=== PATIENT | female | born 1950 | race Caucasian/White ===

== ENCOUNTER → 2016-11-22 | Outpatient (CLI) | payer MEDICARE, BC ==
--- NOTE | 2016-11-22 15:11 | KCIC ---
PROCEDURE Complete pelvic ultrasound. HISTORY Right pelvic pain since November 12. TECHNIQUE Real-time ultrasound imaging of the pelvis using transabdominal and transvaginal windows is performed. COMPARISON None. FINDINGS Uterus measures 7.1 x 2.5 x 4.2 cm. No focal myometrial abnormality. Incidentally visualized bladder is unremarkable. Ovaries are not seen. With transvaginal scanning, small nabothian cysts are identified. The endometrial stripe is normal measuring 5 millimeters. The right and left ovary are not identified. No evidence of adnexal mass. No pelvic free fluid is identified. IMPRESSION 1. Ovaries are not identified. 2. The endometrial stripe is normal. 3. No pelvic free fluid. Electronically signed by: Hilton Serrano MD (Nov 22, 2016 15:10:07)
--- NOTE | 2016-11-23 07:54 | KCIC ---
Bilateral digital screening mammograms with CAD: HISTORY Routine screening. COMPARISON Comparison is made to previous studies dated back to 03/26/2014. FINDINGS Breast density category A. The skin and nipples show no abnormalities. No abnormal lymph nodes are seen in the axilla. The breast parenchyma is predominately fatty. There continue to be small parenchymal asymmetries seen bilaterally which have not changed. There are no dominant masses, suspicious calcifications or architectural distortions. IMPRESSION No evidence of malignancy. Recommend routine annual mammographic screening. This study was interpreted with the benefit of Computerized Aided Detection (CAD). Mammography is not 100% sensitive in detecting breast cancer. Therefore, a self breast exam and a clinical breast exam are very important. A negative mammogram does not negate a clinically suspicious finding and should not result in a delay in biopsying a clinically suspicious abnormality. BI-RADS category 2: Benign. This patient's information has been entered into a reminder system for the patient to be notified with the results of this examination and a target date for her next mammograms. Electronically signed by: Laura Winchester MD (Nov 23, 2016 07:52:06)
== END | disposition home or self-care (01) ==
LOC: KCIC US 13:44
PROVIDERS: ATTEND Nurse Practitioner Family
DX: Z12.31 Encounter for screening mammogram for malignant neoplasm of breast (principal); R10.2 Pelvic and perineal pain
CPT/HCPCS: 76830; 76856; G0202; 77067

== ENCOUNTER → 2016-12-07 | Outpatient (CLI) | payer MEDICARE, BC ==
--- NOTE | 2016-12-07 15:21 | KCIC ---
PROCEDURE Sonography of the left scalp of the head HISTORY Palpable mass. FINDINGS High-resolution sonography of the palpable mass of the left scalp as indicated by the patient was performed. No fluid collection or abscess or solid mass or cyst is seen. IMPRESSION Normal study. With regard to the palpable mass, follow up should be clinical. Noncontrast CT study may be helpful for further evaluation if clinically indicated. Electronically signed by: Aren Tirado MD (Dec 07, 2016 15:19:30)
--- NOTE | 2016-12-07 16:42 | KCIC ---
PROCEDURE CT of the abdomen and pelvis without contrast HISTORY Right lower quadrant pain. Pain since November 12. No fever. History of cholecystectomy. COMPARISON None TECHNIQUE Standard noncontrast images obtained. No intravenous or oral contrast as per request. Exposure: One or more of the following individualized dose reduction techniques were utilized for this exam: 1. Automated exposure control. 2. Adjustment of the mA and/or kV according to patient size. 3. Use of iterative reconstruction technique. FINDINGS Lung bases are essentially clear. No evidence of urolithiasis or urinary tract obstruction. Examination of solid viscera, GI tract and vascular structures is compromised by the noncontrast technique. Liver,, spleen, pancreas, adrenals and kidneys are grossly unremarkable. There may be a very small hiatal hernia. No bowel obstruction. Colonic diverticulosis identified without evidence of pericolonic inflammation. The appendix is normal. No evidence of ascites. No significant lymph node enlargement. Unopacified urinary bladder demonstrates no evidence of asymmetric wall thickening. No evidence of pelvic mass. Degenerative spondylosis of the lumbar spine. IMPRESSION No evidence of acute abnormality. Electronically signed by: Rolan Rice MD (Dec 07, 2016 16:40:58)
== END | disposition home or self-care (01) ==
LOC: KCIC US 14:24
PROVIDERS: ATTEND Nurse Practitioner Family
DX: R22.0 Localized swelling, mass and lump, head (principal); R10.31 Right lower quadrant pain
CPT/HCPCS: 74176; 76536

== ENCOUNTER → 2017-08-20 | Outpatient (CLI) | payer MEDICARE, BC ==
--- NOTE | 2017-08-20 11:50 | KCIC ---
Ultrasound of the right medial thigh HISTORY: Right medial thigh lump for one month. FINDINGS: Targeted ultrasound is performed in the area of the palpable lump. No abnormal soft tissue mass or fluid collection is identified. No abnormal vascularity is noted. IMPRESSION: No sonographic abnormality is identified at the area of concern. If further workup is clinically warranted, MRI could be considered. Electronically signed by: Rolan Rice MD (08/20/2017 11:47 AM) [facility]-KCIC2
== END | disposition home or self-care (01) ==
LOC: KCIC US 09:53
PROVIDERS: ATTEND Nurse Practitioner Family
DX: R22.42 Localized swelling, mass and lump, left lower limb (principal)
CPT/HCPCS: 76882

== ENCOUNTER → 2017-08-29 | Outpatient (CLI) | payer MEDICARE, BC ==
--- NOTE | 2017-08-29 15:06 | KCIC ---
HIP RIGHT 2 VIEW, LUMBAR SPINE 2-3V, KNEE RIGHT 3V, RIGHT FEMUR XRAY Clinical Indication: Lumbar pain, right knee pain, right hip pain, right inner thigh pain. No injury. Comparison: None. Findings: Visualized pelvic bones unremarkable. There is minimal right convexity scoliosis of the lower lumbar spine. There is degenerative endplate spurring in the lumbar spine. The vertebral body height and alignment are maintained. Disc space narrowing of L2/L3. No acute compression fracture. No acute fracture or dislocation of the right hip. Mild primary degenerative arthropathy for patient age. Soft tissues unremarkable. No acute fracture of the right femur. No periosteal reaction or bony erosion. Soft tissues unremarkable. There is mild medial compartment narrowing of the knee. Tiny marginal osteophytes of the medial compartment. No acute fracture. The mineralization is normal. There is a large quadriceps patellar enthesophyte. There are tiny patellar osteophytes. Patella in anatomic position. No joint effusion. Soft tissues unremarkable. IMPRESSION: 1. No acute bone abnormality. 2. Degenerative spondylosis of L2/L3. 3. Mild primary degenerative arthropathy of the right hip. 4. Mild primary degenerative arthropathy of the medial compartment of the knee. Electronically signed by: Hilton Serrano MD (08/29/2017 3:03 PM) [id number]
== END | disposition home or self-care (01) ==
LOC: KCIC 13:55
PROVIDERS: ATTEND Nurse Practitioner Family
DX: M12.861 Other specific arthropathies, not elsewhere classified, right knee (principal); M47.896 Other spondylosis, lumbar region; M12.851 Other specific arthropathies, not elsewhere classified, right hip
CPT/HCPCS: 72100; 73502; 73552; 73562

== ENCOUNTER 2019-06-30 21:49 | Inpatient (IN) | payer MEDICARE, BC ==
[~2019-06-30] VITALS: Ht 162.6 cm; Wt 81.2 kg
[2019-06-30 22:23] LABS: BASO # 0.1 x10^3/uL (0.0-0.2); BASO % 1 % (0-3); EOS # 0.2 x10^3/uL (0.0-0.7); EOS % 2 % (0-3); HEMATOCRIT 39.2 % (36.0-47.0); HEMOGLOBIN 13.4 g/dL (12.0-15.5); LYMPH # 3.6 x10^3/uL (1.0-4.8); LYMPH % 39 % (24-48); MEAN CORPUSCULAR HEMOGLOBIN 29 pg (25-35); MEAN CORPUSCULAR HGB CONC 34 g/dL (31-37); MEAN CORPUSCULAR VOLUME 86 fL (79-100); MONO # 0.8 x10^3/uL (0.0-1.1); MONO % 9 % (0-9); NEUT # 4.5 x10^3/uL (1.8-7.7); NEUT % 49 % (31-73); PLATELET COUNT 343 x10^3/uL (140-400); RED BLOOD COUNT 4.56 x10^6/uL (3.50-5.40); RED CELL DISTRIBUTION WIDTH 13.2 % (11.5-14.5); WHITE BLOOD COUNT 9.2 x10^3/uL (4.0-11.0)
--- NOTE | 2019-06-30 22:25 | PHYS DOC ---
Adult General Chief Complaint Chief Complaint: CHEST PAIN HPI HPI Patient is a 68-year-old female who presents with complaint of bilateral chest pain that she states started about a week ago and has progressively been getting worse. She states the pain is also in her mid back. She states that back there pain is like a deep, dull ache but in the front, it is sharp and stabbing in nature. Patient states that the point of greatest intensity is right in the center of her chest and it radiates laterally from there to both sides. She denies any significant cough. She denies any shortness of breath. Patient rates her pain to be a 9 out of 10. She states the pain is worsened when she lies down flat, if she takes in a deep breath and with certain movements. She states that nothing is really improving her pain with the exception of sitting upright.[] Review of Systems Review of Systems Constitutional: Denies fever or chills [] Respiratory: Denies cough or shortness of breath [] Cardiovascular: No additional information not addressed in HPI [] GI: Denies abdominal pain, nausea, vomiting or diarrhea [] Musculoskeletal: Complains of mid back pain [] Integument: Denies rash or skin lesions [] Neurologic: Denies headache, focal weakness or sensory changes [] All other systems were reviewed and found to be within normal limits, except as documented in this note. Current Medications Current Medications Current Medications Medications (Trade) Dose Ordered Sig/Jarrod Start Time Stop Time Status Last Admin Dose Admin Aspirin (Children'S Aspirin) 324 mg 1X ONCE 06/30/19 23:15 06/30/19 23:16 DC 06/30/19 23:53 324 MG Heparin Sodium (Porcine) (Heparin Sodium) 1,950 unit PRN Q6HRS PRN 06/30/19 23:30 Heparin Sodium/ Dextrose 500 ml @ 0 mls/hr CONT PRN PRN 06/30/19 23:30 Info (Anti-Coagulation Monitoring By Pharmacy) 1 each PRN DAILY PRN 06/30/19 23:45 Morphine Sulfate (Morphine Sulfate) 4 mg 1X ONCE 06/30/19 23:45 06/30/19 23:46 DC Ondansetron HCl (Zofran) 4 mg 1X ONCE 06/30/19 23:15 06/30/19 23:16 DC 06/30/19 23:52 4 MG Sodium Chloride 1,000 ml @ 100 mls/hr Q10H 06/30/19 22:30 07/01/19 08:29 Allergies Allergies Allergies Coded Allergies Type Severity Reaction Last Updated Verified No Known Drug Allergies 06/30/19 No Physical Exam Physical Exam Constitutional: Well developed, well nourished, no acute distress, non-toxic appearance. [] HENT: Normocephalic, atraumatic, bilateral external ears normal, oropharynx mo ist, no oral exudates, nose normal. [] Eyes: PERRLA, EOMI, conjunctiva normal, no discharge. [] Neck: Normal range of motion, no tenderness, supple, no stridor. [] Cardiovascular: Regular rate and rhythm[] Lungs & Thorax: Bilateral breath sounds clear to auscultation [] Abdomen: Bowel sounds normal, soft, no tenderness. [] Skin: Warm, dry, no erythema, no rash. [] Back: There is tenderness to palpation around T8-T9 in the bilateral paraspinal musculature. [] Extremities: No tenderness, no cyanosis, no clubbing, ROM intact. [] Neurologic: Alert and oriented X 3, no focal deficits noted. [] Current Patient Data Vital Signs Vital Signs Date Time Temp Pulse Resp B/P (MAP) Pulse Ox O2 Delivery O2 Flow Rate FiO2 06/30/19 23:55 17 97 Room Air 06/30/19 21:55 97.9 95 203/108 (139) 97.9 Lab Values Laboratory Tests Test 06/30/19 22:07 White Blood Count 9.2 x10^3/uL (4.0-11.0) Red Blood Count 4.56 x10^6/uL (3.50-5.40) Hemoglobin 13.4 g/dL (12.0-15.5) Hematocrit 39.2 % (36.0-47.0) Mean Corpuscular Volume 86 fL (79-100) Mean Corpuscular Hemoglobin 29 pg (25-35) Mean Corpuscular Hemoglobin Concent 34 g/dL (31-37) Red Cell Distribution Width 13.2 % (11.5-14.5) Platelet Count 343 x10^3/uL (140-400) Neutrophils (%) (Auto) 49 % (31-73) Lymphocytes (%) (Auto) 39 % (24-48) Monocytes (%) (Auto) 9 % (0-9) Eosinophils (%) (Auto) 2 % (0-3) Basophils (%) (Auto) 1 % (0-3) Neutrophils # (Auto) 4.5 x10^3/uL (1.8-7.7) Lymphocytes # (Auto) 3.6 x10^3/uL (1.0-4.8) Monocytes # (Auto) 0.8 x10^3/uL (0.0-1.1) Eosinophils # (Auto) 0.2 x10^3/uL (0.0-0.7) Basophils # (Auto) 0.1 x10^3/uL (0.0-0.2) D-Dimer (Bailey) < 0.27 ug/mlFEU Sodium Level 142 mmol/L (136-145) Potassium Level 3.5 mmol/L (3.5-5.1) Chloride Level 104 mmol/L (98-107) Carbon Dioxide Level 26 mmol/L (21-32) Anion Gap 12 (6-14) Blood Urea Nitrogen 13 mg/dL (7-20) Creatinine 0.9 mg/dL (0.6-1.0) Estimated GFR (Cockcroft-Gault) 61.9 BUN/Creatinine Ratio 14 (6-20) Glucose Level 105 mg/dL (70-99) H Calcium Level 9.2 mg/dL (8.5-10.1) Magnesium Level 2.1 mg/dL (1.8-2.4) Total Bilirubin 0.3 mg/dL (0.2-1.0) Aspartate Amino Transferase (AST) 30 U/L (15-37) Alanine Aminotransferase (ALT) 38 U/L (14-59) Alkaline Phosphatase 49 U/L (46-116) Troponin I Quantitative 0.741 ng/mL (0.000-0.055) ZB-Rmi-W-Type Natriuretic Peptide 552 pg/mL (0-124) H Total Protein 8.1 g/dL (6.4-8.2) Albumin 3.7 g/dL (3.4-5.0) Albumin/Globulin Ratio 0.8 (1.0-1.7) L Lipase 135 U/L (73-393) Laboratory Tests 06/30/19 22:07 Laboratory Tests 06/30/19 22:07 EKG EKG [] Interpretation Time: EKG demonstrates normal sinus rhythm with rate of 88. Radiology/Procedures Radiology/Procedures [] Course & Med Decision Making Course & Med Decision Making Pertinent Labs and Imaging studies reviewed. (See chart for details) [] Dragon Disclaimer Dragon Disclaimer This electronic medical record was generated, in whole or in part, using a voice recognition dictation system. Departure Departure Impression: Primary Impression: NSTEMI (non-ST elevated myocardial infarction) Disposition: ADMITTED INPATIENT Admitting Physician: HAIR (Dr. Grady) Condition: IMPROVED Referrals: MELYSSA GUPTA APRN (PCP) CHRISTIN ARANGO Jr., DO Jun 30, 2019 22:25
[2019-06-30] MEDS ORDERED: MORPHINE SULFATE 2 MG/ML VIAL. IV ONE (22:30)
[2019-06-30] MEDS ORDERED: IV NORMAL SALINE 1000ML BAG 1,000 ML IV SCH (22:30)
[2019-06-30 22:45] LABS: CALCIUM 9.2 mg/dL (8.5-10.1); CREATININE 0.9 mg/dL (0.6-1.0); GFR 61.9; POTASSIUM 3.5 mmol/L (3.5-5.1)
[2019-06-30 22:51] LABS: ALBUMIN 3.7 g/dL (3.4-5.0); ALBUMIN/GLOBULIN RATIO 0.8 (1.0-1.7); MAGNESIUM 2.1 mg/dL (1.8-2.4); TOTAL BILIRUBIN 0.3 mg/dL (0.2-1.0); TOTAL PROTEIN 8.1 g/dL (6.4-8.2)
[2019-06-30] MEDS ORDERED: ONDANSETRON PF 4 MG/2 ML VIAL. IV ONE (23:15)
[2019-06-30] MEDS ORDERED: ASPIRIN CHEWABLE 81 MG TABLET. PO ONE (23:15)
--- NOTE | 2019-06-30 23:22 | RAD ---
AP chest x-ray HISTORY: Chest pain. FINDINGS: Tortuosity/ectasia aortic arch. Heart size normal. No pneumothorax, pulmonary opacities or pleural effusions. Mild elevation of the right diaphragm similar to the CT abdomen from 2017. Bones are unremarkable. IMPRESSION: No acute process. Electronically signed by: Wai Grijalva MD (06/30/2019 11:19 PM) [facility]
[2019-06-30] MEDS ORDERED: HEPARIN for IV BOLUS 10,000 UNIT/10 ML VIAL. IV PRN (23:30)
[2019-06-30] MEDS ORDERED: HEPARIN 25,000UTS/500ML PREMIX 500 ML IV PRN (23:30)
[2019-06-30] MEDS ORDERED: MORPHINE SULFATE 4 MG/ML VIAL. IV ONE (23:45)
[2019-07-01] VITALS (30 sets, daily range): BP systolic 133–185; BP diastolic 76–113
[2019-07-01] MEDS ORDERED: HEPARIN for IV BOLUS 10,000 UNIT/10 ML VIAL. IV ONE
[2019-07-01] MEDS ORDERED: ONDANSETRON PF 4 MG/2 ML VIAL. IV PRN
--- NOTE | 2019-07-01 01:45 | NUR ---
Patient admitted to room 114 at 0120 via cart from ED, accompanied by ED RN; patient with Heparin infusing per cardiac protocol with UFH due at 0600. Patient A/Ox4, friendly and cooperative and complaining of midsternal chest pain rating 3/10 with radiation around bilat breast to back and straight through to the back without associated symptoms. Patient reports pain is better since administration of Fentanyl in ED. Patient oriented to ICU routine, room, nursing call light, TV/bed control, Numeric pain scale, diet (NPO), activity (up with assist) and POC. Discussed need for NPO status for further testing this am and plan to call Dr Fajardo to notify of consult and update on chest discomfort. Patient verbalized understanding of above and is agreeable. See Admission information and Admission assessment.
[2019-07-01] MEDS ORDERED: HEPARIN for IV BOLUS 10,000 UNIT/10 ML VIAL. IV PRN (01:50)
[2019-07-01] MEDS: ANTI-COAG MONITOR BY PHARMACY. MC PRN ×2 (01:51→16:03)
[2019-07-01] MEDS: IV NORMAL SALINE 1000ML BAG 1,000 ML IV SCH ×2 (02:01→11:16)
--- NOTE | 2019-07-01 02:20 | NUR ---
Paged Dr Fajardo, returned page, notified of consult for NSTEMI patient active chest pain which radiated around bilat breast to back and straight through to the back initially rating 3/10 now increased to 5/10 on Numeric pain scale without associated symptoms. Also notified of SBP 180's and DBP 110's. Orders received to start Nitro gtt per protocol for chest pain and decrease SBP to 140's; see orders. Patient notified.
[2019-07-01] MEDS ORDERED: NITROGLYCERIN PREMIX 250 ML IV PRN (02:30)
[2019-07-01] MEDS ORDERED: MORPHINE SULFATE 2 MG/ML VIAL. IV PRN (02:30)
[2019-07-01] MEDS: MORPHINE SULFATE 4 MG/ML VIAL. IV PRN ×3 (04:57→11:12)
--- NOTE | 2019-07-01 05:47 | EKG ---
[facility] [address] [place] [address] Test Date: 2019-06-30 Test Time: 21:56:55 Pat Name: BROOKE GUZMAN Department: Room: 114 1 Gender: F Boiler Mechanic: : 1950 Requested By: CHRISTIN ARANGO Order Number: [id number] Reading MD: Michael Singleton MD Measurements Intervals [place] Rate: 88 P: 53 KS: 150 QRS: 34 QRSD: 82 T: 33 QT: 386 QTc: 471 Interpretive Statements SINUS RHYTHM Electronically Signed On 07-07-2019 9:44:02 CDT by Michael Singleton MD
[2019-07-01 06:05] LABS: HEMATOCRIT 36.1 % (36.0-47.0); HEMOGLOBIN 12.4 g/dL (12.0-15.5); RED BLOOD COUNT 4.21 x10^6/uL (3.50-5.40); WHITE BLOOD COUNT 8.7 x10^3/uL (4.0-11.0)
[2019-07-01 06:33] LABS: CALCIUM 8.7 mg/dL (8.5-10.1); CREATININE 0.8 mg/dL (0.6-1.0); GFR 70.9; MAGNESIUM 2.1 mg/dL (1.8-2.4)
--- NOTE | 2019-07-01 06:50 | NUR ---
UFH 0.41, per Heparin protocol no change in dose and repeat UFH in 6HRS. Heparin gtt continues at 12UNITS/KG/HR (19.7/HR) and UFH ordered for 1200.
[2019-07-01] MEDS ORDERED: ESTR0.62 PO (07:26)
[2019-07-01] MEDS ORDERED: ESOM40CA PO (07:26)
[2019-07-01] MEDS ORDERED: RANI-376 PO (07:26)
[2019-07-01] MEDS: ONDANSETRON PF 4 MG/2 ML VIAL. IV PRN ×2 (07:46→17:33)
[2019-07-01] MEDS: FAMOTIDINE 20 MG TABLET. PO SCH ×2 (08:57→20:47)
[2019-07-01] MEDS ORDERED: AMLO2.5T5 PO (09:32)
--- NOTE | 2019-07-01 09:59 | HP ---
ADMIT DATE: 07/01/2019 CHIEF COMPLAINT: Chest pain. HISTORY OF PRESENT ILLNESS: The patient is a pleasant 68-year-old female who presented with chest pain. It is bilateral, started about a week ago, and has progressively gotten worse. She took some xikx-[id number] meds, but that did not seem to help. It is radiating to the back, rated at 7/10. When she got to our Emergency Room, we checked some labs and sure enough her troponin is slightly high at 0.7. We admitted her to the ICU overnight. Now, her troponin is up to 1.8. I suspect she has had a small acute myocardial infarction. The patient is being examined in the ICU. We have consulted Cardiology. PAST MEDICAL HISTORY: Hypertension and GERD. ALLERGIES: None. FAMILY HISTORY: Coronary artery disease. SOCIAL HISTORY: She does not drink, smoke, or take drugs. MEDICATIONS: Reviewed. Please refer to the MRAD. REVIEW OF SYSTEMS: GENERAL: No history of weight change, weakness or fevers. SKIN: No bruising, hair changes or rashes. EYES: No blurred, double or loss of vision. NOSE AND THROAT: No history of nosebleeds, hoarseness or sore throat. HEART: She complains of chest pain. LUNGS: Denies cough, hemoptysis, wheezing or shortness of breath. GASTROINTESTINAL: Denies changes in appetite, nausea, vomiting, diarrhea or constipation. GENITOURINARY: No history of frequency, urgency, hesitancy or nocturia. NEUROLOGIC: Denies history of numbness, tingling, tremor or weakness. PSYCHIATRIC: No history of panic, anxiety or depression. ENDOCRINE: No history of heat or cold intolerance, polyuria or polydipsia. EXTREMITIES: Denies muscle weakness, joint pain, pain on walking or stiffness. PHYSICAL EXAMINATION: VITALS: Within normal limits and are stable. GENERAL: No apparent distress. Alert and oriented. HEENT: Head is normocephalic, atraumatic, pupils were equally round and reactive to light and accommodation. NECK: Supple, no JVD, no thyromegaly was noted. LUNGS: Clear to auscultation in all lung c[place] without rhonchi or wheezing. HEART: RRR, S1, S2 present. Peripheral pulses intact, no obvious murmurs were noted. ABDOMEN: Soft, nontender. Positive bowel sounds no organomegaly, normal bowel sounds. EXTREMITIES: Without any cyanosis, clubbing, or edema. Pedal pulses intact, Homans sign is negative. NEUROLOGIC: Normal speech, normal tone. A & O x3, moves all extremities, no obvious focal deficits. PSYCHIATRIC: Normal affect, normal mood. Stable. SKIN: No ulcerations or rashes, good skin turgor, no jaundice. VASCULAR: Good capillary refill, neurovascular bundle appears to be intact. LABORATORY DATA: Troponin is 1.8. ASSESSMENT AND PLAN: Acute myocardial infarction. The patient has been admitted. We are checking serial enzymes and serial EKGs. We have consulted Cardiology. We have her on a heparin drip and nitro drip. Home meds. Deep venous thrombosis prophylaxis. Full code. Await further Cardiology input. PROGNOSIS: Guarded. YOLIS BERRY DO DR: JUANITO/bereket JOB#: [id number] / [id number]
--- NOTE | 2019-07-01 10:32 | PDOC2 ---
BARRERA CONNOLLY ART PREPARATOR 07/01/19 1032: CARDIAC CONSULT DATE OF CONSULT Date of Consult DATE: 07/01/19 TIME: 10:31 REASON FOR CONSULT Reason for Consult: NSTEMI REFERRING PHYSICIAN Referring Physician: Dr. Herrera SOURCE Source: Chart review, Patient HISTORY OF PRESENT ILLNESS HISTORY OF PRESENT ILLNESS This is a 68 yo female who presented secondary to chest pain. Patient reports intermittent central chest pressure for the last week. No SOA, palpitations. Mild nausea. No specific worsening or relieving factors. Due to persistent, progressively worsening pain, misty came to the ED for further evaluation and treatment. Slightly dizzy this morning. PAST MEDICAL HISTORY Cardiovascular: HTN GI: GERD Musculoskeletal: Osteoarthritis PAST SURGICAL HISTORY Past Surgical History: Cholecystectomy, Tubal Ligation, Tonsillectomy FAMILY HISTORY Family History: Coronary Artery Disease SOCIAL HISTORY Smoke: No ALCOHOL: none Drugs: None Lives: with Family CURRENT MEDICATIONS CURRENT MEDICATIONS Current Medications Medications (Trade) Dose Ordered Sig/Jarrod Route PRN Reason Start Time Stop Time Status Last Admin Dose Admin Morphine Sulfate (Morphine Sulfate) 2 mg 1X ONCE IV 06/30/19 22:30 06/30/19 22:31 DC 06/30/19 23:55 Sodium Chloride 1,000 ml @ 100 mls/hr Q10H IV 06/30/19 22:30 07/01/19 08:29 DC 07/01/19 00:13 Ondansetron HCl (Zofran) 4 mg 1X ONCE IV 06/30/19 23:15 06/30/19 23:16 DC 06/30/19 23:52 Aspirin (Children'S Aspirin) 324 mg 1X ONCE PO 06/30/19 23:15 06/30/19 23:16 DC 06/30/19 23:53 Heparin Sodium (Porcine) (Heparin Sodium) 4,000 unit 1X ONCE IV 07/01/19 00:00 07/01/19 00:01 DC 07/01/19 00:12 Heparin Sodium/ Dextrose 500 ml @ 0 mls/hr CONT PRN PRN IV ANTICOAGULATION 06/30/19 23:30 07/01/19 00:18 Info (Anti-Coagulation Monitoring By Pharmacy) 1 each PRN DAILY PRN MC SEE COMMENTS 06/30/19 23:45 07/01/19 01:51 Ondansetron HCl (Zofran) 4 mg PRN Q8HRS PRN IV NAUSEA/VOMITING 1st choice 07/01/19 00:00 07/01/19 07:44 DC 07/01/19 04:11 Morphine Sulfate (Morphine Sulfate) 4 mg PRN Q2HR PRN IV SEVERE PAIN 7-10 07/01/19 00:00 07/01/19 23:59 07/01/19 08:45 Sodium Chloride 1,000 ml @ 100 mls/hr Q10H IV 07/01/19 00:00 07/01/19 23:59 07/01/19 02:01 Nitroglycerin/ Dextrose 250 ml @ 1.5 mls/hr CONT PRN IV SEE I/O RECORD 07/01/19 02:30 07/01/19 02:40 Morphine Sulfate (Morphine Sulfate) 2 mg PRN Q2HR PRN IV SEVERE PAIN 7-07/01/19 02:30 07/01/19 03:27 Ondansetron HCl (Zofran) 4 mg PRN Q4HRS PRN IV NAUSEA/VOMITING 1st choice 07/01/19 07:45 07/02/19 07:44 07/01/19 07:46 Famotidine (Pepcid) 20 mg BID PO 07/01/19 09:00 07/01/19 08:57 ALLERGIES ALLERGIES: Coded Allergies: No Known Drug Allergies (Unverified , 06/30/19) ROS Review of System 14 point ROS conducted with pertinent positives noted above in HPI PHYSICAL EXAM General: Alert, Oriented X3, Cooperative, No acute distress HEENT: Atraumatic, Mucous membr. moist/pink Lungs: Clear to auscultation, Normal air movement Heart: Regular rate, Normal S1, Normal S2, No murmurs Abdomen: Soft, No tenderness Extremities: No cyanosis, No edema, Normal pulses Skin: No significant lesion Neuro: Normal speech, Sensation intact Psych/Mental Status: Mental status NL, Mood NL MUSCULOSKELETAL: Osteoarthritic changes both hands VITALS/I&O VITALS/I&O: Vital Signs Date Time Temp Pulse Resp B/P (MAP) Pulse Ox O2 Delivery O2 Flow Rate FiO2 07/01/19 09:00 91 17 157/87 (110) 93 Room Air 07/01/19 07:00 98.4 98.4 I & O 06/30/19 06/30/19 07/01/19 15:00 23:00 07:00 Intake Total 709 ml Balance 709 ml LABS Lab: Laboratory Tests Test 06/30/19 22:07 07/01/19 05:45 White Blood Count 9.2 x10^3/uL (4.0-11.0) 8.7 x10^3/uL (4.0-11.0) Red Blood Count 4.56 x10^6/uL (3.50-5.40) 4.21 x10^6/uL (3.50-5.40) Hemoglobin 13.4 g/dL (12.0-15.5) 12.4 g/dL (12.0-15.5) Hematocrit 39.2 % (36.0-47.0) 36.1 % (36.0-47.0) Mean Corpuscular Volume 86 fL (79-100) 86 fL (79-100) Mean Corpuscular Hemoglobin 29 pg (25-35) 29 pg (25-35) Mean Corpuscular Hemoglobin Concent 34 g/dL (31-37) 34 g/dL (31-37) Red Cell Distribution Width 13.2 % (11.5-14.5) 13.0 % (11.5-14.5) Platelet Count 343 x10^3/uL (140-400) 316 x10^3/uL (140-400) Neutrophils (%) (Auto) 49 % (31-73) Lymphocytes (%) (Auto) 39 % (24-48) Monocytes (%) (Auto) 9 % (0-9) Eosinophils (%) (Auto) 2 % (0-3) Basophils (%) (Auto) 1 % (0-3) Neutrophils # (Auto) 4.5 x10^3/uL (1.8-7.7) Lymphocytes # (Auto) 3.6 x10^3/uL (1.0-4.8) Monocytes # (Auto) 0.8 x10^3/uL (0.0-1.1) Eosinophils # (Auto) 0.2 x10^3/uL (0.0-0.7) Basophils # (Auto) 0.1 x10^3/uL (0.0-0.2) D-Dimer (Bailey) < 0.27 ug/mlFEU Sodium Level 142 mmol/L (136-145) 143 mmol/L (136-145) Potassium Level 3.5 mmol/L (3.5-5.1) 4.0 mmol/L (3.5-5.1) Chloride Level 104 mmol/L (98-107) 107 mmol/L (98-107) Carbon Dioxide Level 26 mmol/L (21-32) 24 mmol/L (21-32) Anion Gap 12 (6-14) 12 (6-14) Blood Urea Nitrogen 13 mg/dL (7-20) 12 mg/dL (7-20) Creatinine 0.9 mg/dL (0.6-1.0) 0.8 mg/dL (0.6-1.0) Estimated GFR (Cockcroft-Gault) 61.9 70.9 BUN/Creatinine Ratio 14 (6-20) Glucose Level 105 mg/dL (70-99) H 119 mg/dL (70-99) H Calcium Level 9.2 mg/dL (8.5-10.1) 8.7 mg/dL (8.5-10.1) Magnesium Level 2.1 mg/dL (1.8-2.4) 2.1 mg/dL (1.8-2.4) Total Bilirubin 0.3 mg/dL (0.2-1.0) Aspartate Amino Transferase (AST) 30 U/L (15-37) Alanine Aminotransferase (ALT) 38 U/L (14-59) Alkaline Phosphatase 49 U/L (46-116) Troponin I Quantitative 0.741 ng/mL (0.000-0.055) 1.827 ng/mL (0.000-0.055) HH-Eci-R-Type Natriuretic Peptide 552 pg/mL (0-124) H Total Protein 8.1 g/dL (6.4-8.2) Albumin 3.7 g/dL (3.4-5.0) Albumin/Globulin Ratio 0.8 (1.0-1.7) L Lipase 135 U/L (73-393) Heparin Anti-Xa Act, Unfractionated 0.41 IU/mL (0.30-0.70) Laboratory Tests 06/30/19 22:07 07/01/19 05:45 Laboratory Tests 06/30/19 22:07 07/01/19 05:45 ASSESSMENT/PLAN ASSESSMENT/PLAN Chest pain, unstable angina NSTEMI; trop highest 1.8. On heparin and nitro gtt Hypertension Recommendations Continue heparin and nitro gtt ASA Echo to assess LV systolic function Lipid panel Given symptomatology in the setting of NSTMEI, recommend cardiac cath with possible PCI. R/b/a discussed with patient and and they are agreeable to proceed. JOVITA WELLS MD 07/01/19 1140: CARDIAC CONSULT ASSESSMENT/PLAN ASSESSMENT/PLAN Patient seen and examined. Agree with [employer] MAT ASSEMBLER's assessment and plan. Patient with acute non-STEMI. She is presently chest pain-free. Continue heparin infusion per protocol. Plan for cardiac catheterization and possible angioplasty. Risks and benefits were explained and she is agreeable. BARRERA CONNOLLY APRN Jul 01, 2019 10:32 JOVITA WELLS MD Jul 01, 2019 11:40
--- NOTE | 2019-07-01 10:37 | NUR ---
SS following for discharge planning. SS reviewed pt chart. Pt is from home with spouse and is currently on room air. SS will continue to follow for discharge planning.
[2019-07-01] MEDS ORDERED: PROCHLORPERAZINE 10 MG/2 ML VIAL. IV PRN ×2 (10:45)
[2019-07-01] MEDS ORDERED: IOHEXOL 300 MG/ML 100ML VIAL. ONE (13:06)
[2019-07-01] MEDS ORDERED: LIDOCAINE 1% PF 2 ML VIAL. ONE (13:06)
[2019-07-01] MEDS ORDERED: VERAPAMIL 5 MG/2 ML VIAL. ONE (14:09)
[2019-07-01] MEDS ORDERED: MIDAZOLAM HCL/PF 2 MG/2 ML VIAL. ONE (14:09)
[2019-07-01] MEDS ORDERED: fentaNYL PF VIAL 100 MCG/2 ML VIAL ONE (14:09)
[2019-07-01] MEDS ORDERED: NITROGLYCERIN 200 MCG/2 ML SYRINGE FOR CATH/VASC LAB. ONE (14:09)
[2019-07-01] MEDS ORDERED: HEPARIN for IV BOLUS 10,000 UNIT/10 ML VIAL. ONE (14:09)
[2019-07-01] MEDS ORDERED: BIVALIRUDIN 250 MG VIAL. IV ONE ×2 (14:51→15:00)
[2019-07-01] MEDS ORDERED: LIDOCAINE 1% PF 2 ML VIAL. INJ ONE (15:00)
[2019-07-01] MEDS ORDERED: VERAPAMIL 5 MG/2 ML VIAL. IART ONE (15:00)
[2019-07-01] MEDS ORDERED: NITROGLYCERIN 200 MCG/2 ML SYRINGE FOR CATH/VASC LAB. IART ONE (15:00)
[2019-07-01] MEDS ORDERED: IOHEXOL 300 MG/ML 100ML VIAL. IART ONE (15:00)
[2019-07-01] MEDS ORDERED: HEPARIN for IV BOLUS 10,000 UNIT/10 ML VIAL. IART ONE (15:00)
[2019-07-01] MEDS ORDERED: MIDAZOLAM HCL/PF 2 MG/2 ML VIAL. IV ONE (15:00)
[2019-07-01] MEDS ORDERED: fentaNYL PF VIAL 100 MCG/2 ML VIAL IV ONE (15:00)
[2019-07-01] MEDS ORDERED: CONTRAST GIVEN. MC PRN (15:15)
[2019-07-01] MEDS ORDERED: TICAGRELOR 90 MG TABLET. ONE (15:21)
[2019-07-01] MEDS ORDERED: TICAGRELOR 90 MG TABLET. PO ONE (15:30)
[2019-07-01] MEDS ORDERED: IV 1/2 NORMAL SALINE 1,000 ML IV SCH (15:51)
--- NOTE | 2019-07-01 15:51 | PDOC ---
MODERATE SEDATION ASSESSMENT RISKS/ALTERNATIVES Risks/Alternatives Risks and alternatives of this type of sedation and procedure discussed with: RISK/ALTERNATIVES: Patient H & P ON CHART H & P H & P on chart and reviewed for co-morbid conditions and appropriate labs. H&P ON CHART: Yes STATUS PREG STATUS ASSESSED: N/A MEDS/ALLERGIES REVIEWED Meds/Allergies Reviewed Medications and Allergies including time and route of recently administered narcotics and sedatives. MEDS/ALLERGIES REVIEWED: Yes ASA RATING ASA RATING: III AIRWAY ASSESSMENT Airway Assessment Airway patency, oral function limitations, presence of caps, crowns, dentures, partials, and ability to extend neck assessed. AIRWAY ASSESSMENT: Yes MALLAMPATI SCORE MALLAMPATI SCORE: II PRE-SEDATION ASSESSMENT PRE-SEDATION ASSESSMENT: Yes JOVITA WELLS MD Jul 01, 2019 15:51
[2019-07-01] MEDS ORDERED: ACETAMINOPHEN 325 MG TABLET. PO PRN (16:00)
[2019-07-01] MEDS ORDERED: NITROGLYCERIN SUBLINGUAL 0.4 MG BOTTLE OF 25. SL PRN (16:00)
[2019-07-01] MEDS ORDERED: fentaNYL PF VIAL 100 MCG/2 ML VIAL IV PRN (16:00)
[2019-07-01] MEDS ORDERED: OLANZapine IM 10 MG VIAL. IM PRN (16:45)
[2019-07-01] MEDS: METOPROLOL TART IMMED RELEASE 25 MG TABLET. PO SCH (20:48)
[2019-07-01] MEDS ORDERED: ESTROGENS, CONJUGATED 0.625 MG TABLET PO SCH (21:00)
[2019-07-01] MEDS ORDERED: PANTOPRAZOLE 40 MG TABLET.DR. PO SCH (21:00)
[2019-07-01] MEDS ORDERED: METOPROLOL TART IMMED RELEASE 25 MG TABLET. PO SCH (21:00)
[2019-07-01] MEDS ORDERED: ATORVASTATIN CALCIUM 20 MG TABLET PO SCH (21:00)
[2019-07-02] VITALS (11 sets, daily range): BP systolic 141–179; BP diastolic 79–96
[2019-07-02] MEDS ORDERED: ASPIRIN ENTERIC COATED 81 MG TABLET.DR. PO SCH ×2 (08:00)
--- NOTE | 2019-07-02 08:30 | CARD ---
MR#: [id number] Date of Study: 07/01/2019 Ordering Physician: BARRERA CONNOLLY, Referring Physician: BARRERA CONNOLLY, Tech: Ary Gifford APPROVED REPORT EXAM: Two-dimensional and M-mode echocardiogram with Doppler and color Doppler. Other Information Quality : AverageHR: 100bpm INDICATION Chest Pain 2D DIMENSIONS Left Atrium(2D)3.1 (1.6-4.0cm)IVSd1.3 (0.7-1.1cm) Aortic Root(2D)2.9 (2.0-3.7cm)LVDd4.1 (3.9-5.9cm) LVOT Diameter2.0 (1.8-2.4cm)PWd1.2 (0.7-1.1cm) LVDs3.2 (2.5-4.0cm)FS (%) 22.4 % SV33.7 mlLVEF(%)45.6 (>50%) Aortic Valve AoV Peak Onesimo.141.6cm/sAoV VTI25.7cm AO Peak GR.8.0mmHgLVOT VTI 20.38cm AO Mean GR.5mmHg Mitral Valve MV E Xnpcbhqj065.1cm/sMV DECEL BULB070np MV A Xqtdkskc157.4cm/sE/A Ratio0.8 TDI Lateral E' P. V7.27cm/sMedial E' P. V5.92cm/s E/Lateral E'15.0E/Medial E'18.4 Tricuspid Valve TR P. Ptbowsfy074pb/sRAP KJXBXWTN3ezVa TR Peak Gr.46jcVvOQPL59sjAr LEFT VENTRICLE The left ventricle is normal size. There is mild to moderate concentric left ventricular hypertrophy. Mid to distal anteroseptal wall hypokinesis. The Ejection Fraction is 40-45%. Transmitral Doppler fl ow pattern is Grade I-abnormal relaxation pattern. RIGHT VENTRICLE The right ventricle is normal size. There is normal right ventricular wall thickness. The right ventr icular systolic function is normal. ATRIA The left atrium size is normal. The right atrium size is normal. The interatrial septum is intact wit h no evidence for an atrial septal defect or patent foramen ovale as noted on 2-D or Doppler imaging. AORTIC VALVE The aortic valve is not well visualized. Doppler and Color Flow revealed no significant aortic regurg itation. There is no significant aortic valvular stenosis. MITRAL VALVE The mitral valve is normal in structure and function. There is no evidence of mitral valve prolapse. There is no mitral valve stenosis. Doppler and Color-flow revealed trace mitral regurgitation. TRICUSPID VALVE The tricuspid valve is not well visualized. Doppler and Color Flow revealed trace tricuspid regurgita tion with an estimated PAP of 34 mmHg. There is no tricuspid valve stenosis. PULMONIC VALVE The pulmonic valve is not well visualized. Doppler and Color Flow revealed no pulmonic valvular regur gitation. GREAT VESSELS The aortic root is normal in size. The IVC is normal in size and collapses >50% with inspiration. PERICARDIAL EFFUSION There is no evidence of significant pericardial effusion. Critical Notification Critical Value: No <Conclusion> Mid to distal anteroseptal wall hypokinesis. The Ejection Fraction is 40-45%. Transmitral Doppler flow pattern is Grade I-abnormal relaxation pattern. Trace mitral regurgitation. Trace tricuspid regurgitation with an estimated PAP of 34 mmHg. There is no evidence of significant pericardial effusion. Signed by : Santy Hernandez, Electronically Approved : 07/02/2019 08:29:40
--- NOTE | 2019-07-02 08:52 | CARD ---
MR#: [id number] Date of Study: 07/01/2019 Ordering Physician: JOVITA HERNANDEZ, Referring Physician: JOVITA HERNANDEZ Tech: RT Laurie (R) APPROVED REPORT Technologist: RT Laurie (R) Nurse: Makenna Roca R.N. Procedure(s) performed: 1. Left heart catheterization and selective coronary angiography via right t ransradial approach 2. Successful complex PCI/drug eluting stent placement to left anterior descending artery Fluoro time: 17min Dose: 29Pajd5 Contrast:195cc Moderate sedation: 61 mins INDICATION The indication(s) include : non-STEMI . CS Clinical Frailty Scale CS Clinical Frailty Scale: Mildly Frail Heart Failure Heart Failure: No PROCEDURE NARRATIVE After explaining the risks, benefits and alternative options, informed consent was obtained from merritt ent. Patient was brought to the cardiac Train Brake Operator and right wrist was prepped and draped in the usual fashion after confirming a positive modified Amarjit's test. Arterial access was obtained in the righ t radial artery and a 6 Guinean sheath was inserted. 6 Guinean JL 3.5 and 6 Guinean Lonny catheters we re used to perform selective angiography of the left and right coronary arteries. LVEDP and transaort ic gradients were measured. Left ventriculography was not performed due to elevated LVEDP. The follo wing findings were noted. FINDINGS 1. Hemodynamics: Elevated left ventricle end-diastolic pressure of 32 mmHg consistent with acute lew stolic heart failure. No pullback gradient across the aortic valve. 2. Coronary angiography: a. The left main coronary artery arose from the left sinus of Valsalva, gave rise to the left anteri or descending and left circumflex arteries and did not show any significant stenosis. b. The left anterior descending artery showed critical 90-95% stenosis involving the ostial and prox imal segments. c. The left circumflex artery did not show any significant stenosis. d. The right coronary artery was a large and dominant vessel arising from the right sinus of Valsalv a that did not show any significant stenosis. INTERVENTION The left main coronary artery was engaged with a 6 Guinean XB 3.5 guide catheter. The stenosis in the ostial and proximal segment of the left anterior descending artery was crossed with a 0.014 inch [employer] i Pro water guidewire. This was predilated with a 2.5 x 15 mm trek balloon. Subsequently, this was tr eated with a 3.0 x 18 mm Rivera Xience Katerin drug-eluting stent. This was postdilated with a 3.25 x 8 mm noncompliant NC trek balloon. Follow-up angiography showed resolution of the stenosis with ANAID- 3 distal flow. Patient tolerated the procedure well. Hemostasis was achieved using TR band. There wer e no immediate complications. ANAID Flow ANAID Flow (Pre-Intervention): ANAID-2 ANAID Flow (Post-Intervention): ANAID-3 Conclusion 1. Severe single-vessel coronary artery disease involving left anterior descending artery 2. Successful PCI/JANIS to LAD Recommendations 1. Aspirin 81 mg daily 2. Ticagrelor 90 mg BID for preferably one year 3. Cardiovascular risk factor modification 4. Check 2-D echo to assess LV systolic function Signed by : Jovita Hernandez, Electronically Approved : 07/02/2019 08:51:33
[2019-07-02] MEDS ORDERED: LISINOPRIL 5 MG TABLET. PO SCH (09:00)
[2019-07-02] MEDS ORDERED: TICAGRELOR 90 MG TABLET. PO SCH (09:00)
[2019-07-02] MEDS: FAMOTIDINE 20 MG TABLET. PO SCH (09:04)
[2019-07-02] MEDS: METOPROLOL TART IMMED RELEASE 25 MG TABLET. PO SCH (09:05)
[2019-07-02] MEDS ORDERED: LOPE2TAB27 PO (09:30)
[2019-07-02] MEDS ORDERED: MOME45CR3 TP (09:52)
[2019-07-02] MEDS ORDERED: ALBU2.5V8 INH ×2 (09:52→15:00)
[2019-07-02] MEDS ORDERED: SUCR1TAB35 PO (09:52)
[2019-07-02] MEDS ORDERED: PSEU30CA PO (09:52)
[2019-07-02] MEDS ORDERED: FEXO180T81 PO (10:06)
[2019-07-02] MEDS ORDERED: MULT1TAB52 PO ×2 (10:08→15:03)
[2019-07-02] MEDS ORDERED: LOPERAMIDE 2 MG CAPSULE PO SCH (11:00)
--- NOTE | 2019-07-02 12:20 | PDOC ---
[facility] PROGRESS NOTE Chief Complaint Chief Complaint Chest pain, elevated troponin. History of Present Illness History of Present Illness Patient is a 68 year old white female admitted for chest pain and elevated troponin. Patient was seen and examined in the ICU, she had a stent placed in the Left anterior descending artery yesterday. She states that she has felt tremendous improvement since the procedure. Vitals/I&O Vitals/I&O: Vital Signs Date Time Temp Pulse Resp B/P (MAP) Pulse Ox O2 Delivery O2 Flow Rate FiO2 07/02/19 09:05 162/81 07/02/19 06:00 80 48 97 Room Air 07/02/19 04:00 98.6 98.6 07/01/19 15:36 2.0 I & O 07/01/19 07/01/19 07/02/19 14:59 22:59 06:59 Intake Total 1451 ml 1000 ml Balance 1451 ml 1000 ml Physical Exam General: Alert, Oriented X3, Cooperative, No acute distress Heart: Regular rate, Normal S1, Normal S2, No murmurs Abdomen: Soft, No tenderness Extremities: No cyanosis, No edema, Normal pulses Skin: No significant lesion Review of Systems Review of Systems: Patient denies weakness and SOB Assessment and Plan Assessmemt and Plan Problems Medical Problems: (1) NSTEMI (non-ST elevated myocardial infarction) Status: Acute Assessment: Chest pain, elevated troponin. Patient seen and examined in ICU. DW nurse and family along with patient. Plan: 1. cardiac monitoring 2. discharge today, pending approval from cardiology 3. full code 4. DVT prophylaxis Comment Review of Relevant I have reviewed the following items samara (where applicable) has been applied. Medications: Current Medications Medications (Trade) Dose Ordered Sig/Jarrod Route PRN Reason Start Time Stop Time Status Last Admin Dose Admin Estrogens Conjugated (Premarin) 0.625 mg HS PO 07/01/19 21:00 07/01/19 20:47 Pantoprazole Sodium (Protonix) 40 mg HS PO 07/01/19 21:00 07/01/19 18:06 Nitroglycerin (Nitroglycerin) 200 mcg 1X ONCE IART 07/01/19 15:00 07/01/19 15:01 DC 07/01/19 15:35 Verapamil HCl (Verapamil) 2.5 mg 1X ONCE IART 07/01/19 15:00 07/01/19 15:01 DC 07/01/19 15:41 Heparin Sodium (Porcine) (Heparin Sodium) 2,500 unit 1X ONCE IART 07/01/19 15:00 07/01/19 15:01 DC 07/01/19 15:00 Heparin Sodium/ Sodium Chloride (HEPARIN for ARTERIAL LINE FLUSH) 1,000 unit 1X ONCE IART 07/01/19 15:00 07/01/19 15:01 DC 07/01/19 15:41 Midazolam HCl (Versed) 2 mg 1X ONCE IV 07/01/19 15:00 07/01/19 15:01 DC 07/01/19 15:41 Fentanyl Citrate (Fentanyl 2ml Vial) 100 mcg 1X ONCE IV 07/01/19 15:00 07/01/19 15:01 DC 07/01/19 15:36 Iohexol (Omnipaque 300 Mg/ml) 100 ml 1X ONCE IART 07/01/19 15:00 07/01/19 15:01 DC 07/01/19 15:41 Lidocaine HCl (Xylocaine-Mpf 1% 2ml Vial) 2 ml 1X ONCE INJ 07/01/19 15:00 07/01/19 15:01 DC 07/01/19 15:35 Bivalirudin (Angiomax) 250 mg 1X ONCE IV 07/01/19 15:00 07/01/19 15:03 DC 07/01/19 15:37 Ticagrelor (Brilinta) 180 mg 1X ONCE PO 07/01/19 15:30 07/01/19 15:31 DC 07/01/19 15:30 Sodium Chloride 1,000 ml @ 100 mls/hr Q10H IV 07/01/19 15:51 07/02/19 01:50 DC 07/01/19 17:34 Aspirin (Ecotrin) 81 mg DAILYWBKFT PO 07/02/19 08:00 07/02/19 09:04 Ticagrelor (Brilinta) 90 mg BID PO 07/02/19 09:00 07/02/19 09:05 Metoprolol Tartrate (Lopressor) 25 mg BID PO 07/01/19 21:00 07/02/19 09:05 Lisinopril (Prinivil) 5 mg DAILY PO 07/02/19 09:00 07/02/19 09:05 Atorvastatin Calcium (Lipitor) 40 mg QHS PO 07/01/19 21:00 07/01/19 20:47 Loperamide HCl (Imodium) 4 mg DAILY08 PO 07/02/19 11:00 07/02/19 11:41 YOLIS BERRY III DO Jul 02, 2019 12:20
[2019-07-02] MEDS ORDERED: TICA90TA PO (14:16)
[2019-07-02] MEDS ORDERED: ATOR40TA PO (14:17)
[2019-07-02] MEDS ORDERED: METO25TA4 PO (14:19)
[2019-07-02] MEDS ORDERED: LISI10TA PO (14:20)
[2019-07-02] MEDS ORDERED: ESTR0.62 PO (14:57)
[2019-07-02] MEDS ORDERED: MEDR2.5T28 PO (14:57)
[2019-07-02] MEDS ORDERED: RANI300C PO (14:58)
[2019-07-02] MEDS ORDERED: MOME17SP NS (15:00)
[2019-07-02] MEDS ORDERED: SUCR1TAB PO (15:01)
[2019-07-02] MEDS ORDERED: ESOM40CA PO (15:01)
[2019-07-02] MEDS ORDERED: FEXO180T16 PO (15:02)
[2019-07-02] MEDS ORDERED: PSEU120T58 PO (15:03)
[2019-07-02] MEDS ORDERED: LOPE-101 PO (15:03)
[2019-07-02] MEDS ORDERED: ASPI-612 PO (15:22)
--- NOTE | 2019-07-02 15:37 | PDOC ---
BRYAN LEGGETT [employer]ATE [employer] ZINC 07/02/19 1537: CARDIO Progress Notes Date and Time Date of Service 07/02/2019 Time of Evaluation 1510 Subjective Subjective: No Chest Pain, No shortness of breath, No Palpitations Vitals Vitals Vital Signs Date Time Temp Pulse Resp B/P (MAP) Pulse Ox O2 Delivery O2 Flow Rate FiO2 07/02/19 12:00 Room Air 07/02/19 12:00 98.8 94 22 158/89 (112) 97 98.8 07/01/19 15:36 2.0 Weight Weight [ ] Input and Output Intake and Output Intake and Output 07/02/19 06:59 Intake Total 2451 ml Balance 2451 ml Intake Oral 150 ml IV Total 2301 ml # Voids 9 # Bowel Movements 2 Physical Exam HEENT: Neck Supple W Full Motion Chest: Symmetric LUNGS: Clear to Auscultation Heart: S1S2, RRR (SR) Abdomen: Soft N/T Neurology: alert, oriented, follow commands Other Exams right wrist arteriotomy site intact, no erythema, swelling, neurovascular status intact. Assessment Assessment 1. NSTEMI: S/P PCI/JANIS to ostial/proximal LAD 2. ICM: EF at 40-45% 3. HTN: labile episodes 4. HLP 5. Obesity Recommendations 1. ASA/brilinta 2. DC norvasc. increase lisinopril and add HCTZ. Metoprolol in place. High dose statin 3. Wt. loss. DASH diet. 4. Cardiac rehab JOVITA WELLS MD 07/03/19 0649: CARDIO Progress Notes Assessment Assessment Patient seen and examined 07/02/19. Agree with HEAVY FORGER's assessment and plan. s/p PCI/JANIS to LAD, chest pain-free. Continue dual antiplatelet therapy. 2-D echo showed LVEF 40-45%, clinically well compensated. Agree with increasing lisinopril dose for better blood pressure control. Follow-up with our office in 1 month. BRYAN LEGGETT APRN Jul 02, 2019 15:37 JOVITA WELLS MD Jul 03, 2019 06:49
[2019-07-02] MEDS ORDERED: HYDR12.58 PO (15:38)
[2019-07-02] MEDS ORDERED: hydroCHLOROthiazide 12.5 MG CAPSULE PO SCH (16:00)
--- NOTE | 2019-07-03 15:00 | DS ---
DATE OF DISCHARGE: 07/02/2019 ADMISSION DIAGNOSIS: Acute myocardial infarction. DISCHARGE DIAGNOSES: Resolving myocardial infarction with status post cardiac stent to the left anterior descending. HOSPITAL COURSE: The patient is a pleasant 68-year-old female, who presented with chest pain. She had a bump in her troponin to 1.8. We took her to the [facility]. She got a new stent to the LAD. Post-procedure, she did well. We discharged to home. DISPOSITION: Home. ACTIVITY: As tolerated. DIET: Low sodium. MEDICATIONS: Please see the MRAD. TOTAL TIME: 34 minutes. YOLIS BERRY DO DR: JUANITO/bereket JOB#: [id number] / [id number]
== END 2019-07-02 16:55 | disposition home or self-care (01) | DRG 246 ==
LOC: ER 21:49 → 1 WEST ICU 23:58
PROVIDERS: ADMIT Internal Medicine; ATTEND Internal Medicine
PROC: 027034Z Dilation of Coronary Artery, One Artery with Drug-eluting Intraluminal Device, Percutaneous Approach (ICD-10-PCS; principal; 2019-07-01)
PROC: 4A023N7 Measurement of Cardiac Sampling and Pressure, Left Heart, Percutaneous Approach (ICD-10-PCS; 2019-07-01)
PROC: B2111ZZ Fluoroscopy of Multiple Coronary Arteries using Low Osmolar Contrast (ICD-10-PCS; 2019-07-01)
DX: I21.4 Non-ST elevation (NSTEMI) myocardial infarction (principal); R65.11 Systemic inflammatory response syndrome (SIRS) of non-infectious origin with acute organ dysfunction; I50.31 Acute diastolic (congestive) heart failure; I25.110 Atherosclerotic heart disease of native coronary artery with unstable angina pectoris; E66.9 Obesity, unspecified; E78.5 Hyperlipidemia, unspecified; K21.9 Gastro-esophageal reflux disease without esophagitis; I25.5 Ischemic cardiomyopathy; I10 Essential (primary) hypertension; M19.90 Unspecified osteoarthritis, unspecified site; I25.2 Old myocardial infarction; Z82.49 Family history of ischemic heart disease and other diseases of the circulatory system; Z95.5 Presence of coronary angioplasty implant and graft; Z68.30 Body mass index [BMI] 30.0-30.9, adult; Z90.49 Acquired absence of other specified parts of digestive tract; Z98.51 Tubal ligation status
CPT/HCPCS: 36415; 71045; 80048; 80053; 80061; 83690; 83735; 83880; 84484; 85025; 85027; 85379; 85520; 92928; 93005; 93306; 93458; 96374; 99152; 99153; C1725; C1769; C1874; C1887; C1892; J0583; J0780; J1644; J2250; J2270; J2405; J3010; J3490; J7030; Q9967; 99285-25; C1713; G0378

== ENCOUNTER → 2020-10-27 | Outpatient (CLI) | payer MEDICARE, BC ==
[2019-07-02 15:00] VITALS: BP 141/79
[~2020-10-27] MED LIST: ALBU2.5V8 INH; AMLO2.5T5 PO; ASPI-886 PO; ATOR40TA PO; ESOM40CA PO; ESTR0.62 PO; FEXO180T16 PO; FEXO180T81 PO; HYDR12.58 PO; LISI10TA PO; LOPE-101 PO; LOPE2TAB27 PO; MEDR2.5T28 PO; METO25TA4 PO; MOME17SP NS; MOME45CR3 TP; MULT-445 PO; PSEU120T58 PO; PSEU30CA PO; RANI-376 PO; RANI300C PO; SUCR1TAB PO; SUCR1TAB35 PO; TICA90TA PO
--- NOTE | 2020-10-27 14:51 | KCIC ---
EXAM: Chest, 2 views. HISTORY: Dry cough. COMPARISON: 06/30/2019. FINDINGS: 2 views of the chest are obtained. There is no infiltrate, pleural effusion or pneumothorax . The heart is normal in size. There is stable mild elevation of the right hemidiaphragm. IMPRESSION: No acute pulmonary finding. Electronically signed by: Nataliya Clement MD (10/27/2020 2:48 PM) [id number]
--- NOTE | 2020-10-27 15:07 | KCIC ---
EXAM: Bilateral digital screening mammogram with tomosynthesis. HISTORY: 69-year-old female presents for screening mammography. TECHNIQUE: Full-field digital craniocaudal and mediolateral oblique 2D and 3D tomosynthesis images of both breasts are obtained for evaluation. Computer aided detection was applied. COMPARISON: 11/22/2016 BREAST PARENCHYMAL DENSITY: Level A - Mostly fat. FINDINGS: There is a 1.3 cm spiculated mass within the 10:00 position of the right breast centered ap proximately 7.2 cm from the nipple. There is a tiny circumscribed nodular density within the 6:30 pos ition of the right breast centered approximately 5.8 cm from the nipple. There is no suspicious findi ng within the left breast. IMPRESSION: BI-RADS Category 0: Incomplete. Additional imaging needed. RECOMMENDATION: Further evaluation with a right breast sonogram is recommended to assess a suspicious mass within the 10:00 position at mid depth and tiny nodular density within the 6:00 position of the right breast at anterior to mid depth. If your mammogram demonstrates that you have dense breast tissue, which could hide abnormalities, and if you have other risk factors for breast cancer that have been identified, you might benefit from s upplemental screening tests that may be suggested by your ordering physician. Dense breast tissue, i n and of itself, is a relatively common condition. This information is not provided to cause undue c oncern, but rather to raise your awareness and to promote discussion with your physician regarding th e presence of other risk factors, in addition to dense breast tissue. A report of your mammography re sults will be sent to you and your physician. You should contact your physician if you have any ques tions or concerns regarding this report. Mammography is a sensitive method for finding small breast cancers, but it does not detect them all a nd is not a substitute for careful clinical examination. A negative mammogram does not negate a clin ically suspicious finding and should not result in delay in biopsying a clinically suspicious abnorma lity. PQRS compliance statement - Patient information was entered into a reminder system with a target due date for the next mammogram. "Our facility is accredited by the [employer] Mammography Program." Electronically signed by: Nataliya Clement MD (10/27/2020 3:05 PM) [place] [id number]
== END ==
LOC: KCIC MAMMO 14:18
PROVIDERS: ATTEND Nurse Practitioner Family
DX: Z12.31 Encounter for screening mammogram for malignant neoplasm of breast (principal); R05 Cough
CPT/HCPCS: 71046; 77063; 77067

== ENCOUNTER → 2020-11-10 | Outpatient (CLI) | payer MEDICARE, BC ==
[2019-07-02 15:00] VITALS: BP 141/79
--- NOTE | 2020-11-11 12:23 | RAD ---
Examination: Limited right breast ultrasound. INDICATION: 70-year-old woman recalled from screening for masses in the right breast recommended for ultrasound imaging evaluation. COMPARISON: Screening mammograms of 11/22/2016 and 10/27/2020 TECHNIQUE: Grayscale and color Doppler imaging of the right breast targeting the posterior upper oute r quadrant and the lower outer quadrant was performed in the areas of mammographic interest. FINDINGS: In the right 9:30 o'clock position 8 cm from the nipple, an irregular 9 mm hypoechoic mass with an ec hogenic halo and with peripheral and internal vascularity is identified that correlates with larger m ass recalled from screening. In the right 7:00 position 5 cm from the nipple, a 3 mm parallel orientation hypoechoic mass with sli ghtly irregular margins is identified posteriorly that likely correlates with the second mammographic finding also recalled from screening. Sonographic survey of the right axilla reveals no adenopathy. IMPRESSION: 2 masses in the right breast at the 9:30 o'clock position 8 cm from nipple and at the 7:00 position 5 cm from the nipple which are respectively highly suggestive of malignancy and moderate suspicious fo r malignancy. Both are recommended for ultrasound-guided core needle biopsy. BI-RADS Category 5 Findings highly suggestive of malignancy. Biopsy recommended. Discussed with patient in person and with her referring physician Dr. Tali Taylor by telephone at 3:40 PM on 11/10/2020. Electronically signed by: Aubrey Maya MD (11/11/2020 12:20 PM) [id number]
== END ==
LOC: US 14:44
PROVIDERS: ATTEND Nurse Practitioner Family
DX: R92.2 Inconclusive mammogram (principal); N63.13 Unspecified lump in the right breast, lower outer quadrant
CPT/HCPCS: 76641

== ENCOUNTER → 2020-12-09 | Outpatient (CLI) | payer MEDICARE, BC ==
[2019-07-02 15:00] VITALS: BP 141/79
[~2020-12-09] MED LIST changes: +LIDOCAINE 1% Multi-Dose 20 ML VIAL. INJ ONE
--- NOTE | 2020-12-09 17:41 | RAD ---
Examination: 1. Ultrasound-guided right breast biopsy of the lesion at the 9:30 o'clock position 8 cm from the nip ple. 2. Ultrasound-guided right breast biopsy of a second lesion at the 7:00 position 5 cm from the nipple . 3. Right breast postprocedure mammogram. INDICATION: 70-year-old woman with 2 masses in the right breast recommended for biopsy. COMPARISON: Right breast ultrasound of 11/10/2020 Technique and findings: Informed consent was obtained and an appropriate procedural pause was observed. Using standard sterile technique, and local anesthesia with ultrasound guidance, , a 14-gauge core bi opsy needle was advanced using a coaxial guide and multiple core biopsy samples of the 9:00 lesion an d placed in formalin jar and hemostasis was ensured with direct breast compression for several minute s after an S-shaped biopsy marker was deployed. In a separate successive procedure using fresh sterile equipment for the biopsy, a single sample of t he 7:00 lesion was obtained and placed in a separate formalin jar. Hemostasis was assured with direct breast compression for several minutes after a ribbon-shaped biopsy marker was deployed. Right postprocedure mammogram showed successful deployment of both biopsy markers in the areas of son ographic interest with no postbiopsy hematoma. Postprocedure instructions were provided and patient discharged in stable condition to follow up with her referring physician. There were no apparent complications. Pression: Successful ultrasound-guided right breast core needle biopsy of 2 lesions at the 9:00 and 7:00 positi ons. Pathology results are pending. An addendum will be issued once pathology results become availabl e. Electronically signed by: Aubrey Maya MD (12/09/2020 5:38 PM) [id number]
--- NOTE | 2020-12-13 16:20 | PATHOLOGY ---
[facility] Accession Number: [id number] . 01 Material submitted: . PART A: breast - RIGHT BREAST 7:00. Modifiers: right, 7:00 PART B: breast - RIGHT BREAST 9:30. Modifiers: right, 9:30 . 01 Clinical history: . RIGHT BREAST MASS A: 7:00 5CM FN 3MM B: 9:30 8CM FN 9MM RIGHT BREAST BIOPSY . 02 Diagnosis: A. Breast tissue, right breast mass 7:00 needle biopsy: - Segment of predominantly fatty breast tissue focally containing a small mildly dilated duct and a separate small focus of fibrous breast tissue containing a small duct - negative for malignancy. . B. Breast tissue, right breast mass 9:30 needle biopsy: - INVASIVE DUCTAL CARCINOMA, HIGH-GRADE. SEE COMMENT. LBQ 12/13/2020 1441 Local . 02 Comment: Sections of the right breast mass at 9:30 needle biopsy reveal an invasive mammary carcinoma. The tumor generally has a solid nested appearance and shows little tubule formation. The tumor cells infiltrate a reactive desmoplastic stroma and focally infiltrate fatty tissue. Tumor cells show moderate to focal marked nuclear pleomorphism. Mitotic figures are present. The invasive carcinoma measures up to 8 mm in greatest dimension on the glass slide. There are no tumor associated calcifications. There is no lymphovascular tumor invasion. The case is also examined by Dr. Webb, who concurs with the diagnosis. Breast prognostic studies will be obtained on block A3, the results of which will be reported separately. (JPM/db; 12/10/2020) . 02 Electronically signed: . Antonino Medrano MD, Pathologist NPI- [id number] . 01 Gross description: . A. The specimen is received in formalin, labeled "Becka Aaron, right breast 7:00 5 cm from nipple". Received is a single needle core of fibrofatty tissue measuring 2.0 cm in length by 0.3 cm in diameter. The specimen is submitted entirely in cassette A1. The cold ischemic time is 1 minute. The total formalin fixation time is 9 hours and 47 minutes. . B. The specimen is received in formalin, labeled "Becka Walker, right breast 9:30 8 cm from nipple". Received are three needle cores of fibrofatty tissue measuring 1.5 x 0.6 x 0.3 cm in aggregate dimensions. The specimen is submitted entirely in cassettes B1 through B3. The cold ischemic time is 1 minute. The total formalin fixation time is 9 hours and 20 minutes. ([facility]; 12/09/2020) QAC/QAC 12/09/2020 1836 Local . 02 Pathologist provided ICD-10: C50.911, N60.31 . 02 CPT . 329545, [id number] Specimen Comment: A courtesy copy of this report has been sent to [phone], [phone] Specimen Comment: [id number], Specimen Comment: Report sent to ,DR OCONNELL / DR GUPTA Performed at: 01 [facility] [address] [facility] [address], [place] [id number] MD Angelito Noland MD Phone: [phone] Performed at: 02 [facility] [address] [place], [place] [id number] MD Antonino Medrano MD Phone: [phone]
== END | disposition home or self-care (01) ==
LOC: US 12:15
PROVIDERS: ATTEND Surgery
DX: N63.13 Unspecified lump in the right breast, lower outer quadrant (principal); R92.8 Other abnormal and inconclusive findings on diagnostic imaging of breast; I25.10 Atherosclerotic heart disease of native coronary artery without angina pectoris; I10 Essential (primary) hypertension; K21.9 Gastro-esophageal reflux disease without esophagitis; M19.90 Unspecified osteoarthritis, unspecified site; Z90.49 Acquired absence of other specified parts of digestive tract; Z98.890 Other specified postprocedural states; Z79.899 Other long term (current) drug therapy; Z79.82 Long term (current) use of aspirin
CPT/HCPCS: 19083; 19084; 77065; C1713

== ENCOUNTER → 2021-01-11 | Outpatient (CLI) | payer MEDICARE, BC ==
[2019-07-02 15:00] VITALS: BP 141/79
[~2021-01-11] MED LIST changes: -LIDOCAINE 1% Multi-Dose 20 ML VIAL. INJ ONE; +REGADENOSON 0.4 MG/5 ML DISP.SYRIN. IV ONE
--- NOTE | 2021-01-11 14:23 | RAD ---
MR#: [id number] Date of Study: 01/11/2021 Ordering Physician: JOVITA WELLS Referring Physician: MILENA MOLINA Tech: GABI Freed APPROVED REPORT Test Type: Pharmacological Stress Nurse/Tech: Julieta Be RN Test Indications: CAD Cardiac History: OR with stent, HTN Medications: See Electronic Medical Record Medical History: See Electronic Medical Record Resting ECG: SR Resting Heart Rate: 69 bpm Resting Blood Pressure: 170/90mmHg Pretest Chest Pain: None Nurse/Tech Notes Lungs CTA, S1S2 Consent: The procedure was explained to the patient in lay terms. Informed consent was witnessed. Manish eout was entered into [employer]. History and Stress Test performed by RT Chani (R) (N) Pharm. Details Pharmacologic stress testing was performed using 0.4mg per 5ml of regadenoson given intravenously ove r 7-10 seconds. Stress Symptoms No chest pain or symptoms. POST EXERCISE Reason for Termination: Infusion complete Max HR: 115 bpm Max Blood Pressure: 178/99mmHg Blood Pressure response to exercise: Normal blood pressure response during stress. Heart Rate response to exercise: normal response Chest Pain: No. Arrhythmia: No. ST Change: No. INTERPRETATION Stress EKG Conclusion: Baseline EKG showed sinus rhythm. No ischemic changes at peak stress. No arr hythmias. Imaging Protocol IMAGE PROTOCOL: Rest Tc-99m/stress Tc-99m 1 day Rest: Stress: Viability: Radiopharm.Tc99m [id number] Sestamibi Jhiw00pMi 32mCi Duration 15min. 10min. Img Date 01/11/2021 01/11/2021 Inj-Img [id number]. 60min. Rest Admin Site:IV - Left AntecubitalAdministrator:GABI Freed Stress Admin Site: IV - Left AntecubitalAdministrator: RT Chani (R)(N) STRESS DATA End Diast. Vol.50.0mlAv. Heart Rate90.0bpm End Syst. Vol.13.0mlCO Index BSA0.0L/min Myocardial Mass95.0gEject. Hykqtiyw75.0% Stress Rates Pk. Fill Rate4.64EDV/secLVtime Pk. Fill 139.61msec Pk. Empty Rate4.79ESV/secLVtime Pk. Ltlnq170.41msec / Pk. Fill1.81EDV/sec Stress Scores Regional WT0.00Summed WT5.00 Regional WM0.00Summed WM6.00 Study quality was good. Left Ventricular size was Normal at Rest and Stress. Lung uptake was . Left Ventricular ejection fraction is 74%. The rest and stress images show normal perfusion, normal contraction and thickening. LV Perf. Quant 17 Seg. SSS0.00 17 Seg. SRS0.00 17 Seg. SDS0.00 Stress Defect Extent (% LAD)0.00Rest Defect Extent (% LAD)0.00Rev. Defect Extent (% LAD)0.00 Stress Defect Extent (% LCX) 0.00Rest Defect Extent (% LCX)0.00Rev. Defect Extent (% LCX)0.00 Stress Defect Extent (% RCA)0.00Rest Defect Extent (% RCA)0.00Rev. Defect Extent (% RCA)0.00 Stress Defect Extent (% KAREN)0.00Rest Defect Extent (% KAREN)0.00Rev. Defect Extent (% KAREN)0.00 Conclusion 1. Regadenoson cardioisotope stress test did not show any evidence of ischemia or infarct. 2. Normal left ventricular systolic function with ejection fraction calculated at 74%. 3. Low risk for cardiac events. Signed by : Jovita Wells, Electronically Approved : 01/11/2021 14:22:40
== END ==
LOC: NM 09:10
PROVIDERS: ATTEND Internal Medicine Cardiovascular Disease
DX: I25.10 Atherosclerotic heart disease of native coronary artery without angina pectoris (principal); I10 Essential (primary) hypertension; I25.2 Old myocardial infarction
CPT/HCPCS: 78452; 93017; A9500; J2785

== ENCOUNTER → 2021-01-27 | Outpatient (CLI) | payer MEDICARE, BC ==
[2019-07-02 15:00] VITALS: BP 141/79
[~2021-01-27] MED LIST changes: +ACET325T9 PO; +BECL10.6 IH; +FAMO-63 PO; +LIDODERM PATCH TOP; +LOSA-73 PO; -REGADENOSON 0.4 MG/5 ML DISP.SYRIN. IV ONE
== END ==
LOC: LAB 14:03
PROVIDERS: ATTEND Surgery
DX: Z01.812 Encounter for preprocedural laboratory examination (principal); C50.911 Malignant neoplasm of unspecified site of right female breast; Z20.822 Contact with and (suspected) exposure to COVID-19
CPT/HCPCS: U0003; U0005

== ENCOUNTER 2021-01-31 09:31 | Observation (INO) | payer MEDICARE, BC ==
[2021-01-31] VITALS (10 sets, daily range): BP systolic 112–163; BP diastolic 61–94
[~2021-01-31] VITALS: Ht 157.5 cm; Wt 89.5 kg
[~2021-01-31 09:31] MED LIST changes: +HYDROmorphone 2 MG/ML VIAL IVP PRN; +IV RINGERS,LACTATED 1000ML 1,000 ML IV SCH; +MORPHINE SULFATE 2 MG/ML VIAL. IVP PRN; +PROCHLORPERAZINE 10 MG/2 ML VIAL. IVP PRN; +fentaNYL PF VIAL 100 MCG/2 ML VIAL IVP PRN
--- NOTE | 2021-01-31 11:38 | RAD ---
EXAM: Right breast lymphoscintigraphy. HISTORY: 70-year-old female with recent biopsy-proven right breast cancer presents for lymphoscintigr aphy prior to lumpectomy and sentinel node biopsy. TECHNIQUE: The skin overlying the right areola was sterilely prepped and 1000 uCi technetium 99m Tilm anocept was injected intradermally at the 9:00 periareolar location. No image was obtained. IMPRESSION: Right breast lymphoscintigraphy injection for sentinel node biopsy. Electronically signed by: Nataliya Clement MD (01/31/2021 11:36 AM) [id number]
[2021-01-31] MEDS ORDERED: ISOSULFAN BLUE 1% 50 MG/5 ML VIAL. SQ ONE ×2 (12:36→12:37)
[2021-01-31] MEDS ORDERED: BUPIVACAINE-EPI 0.5% 30 ML VIAL KIT. ONE (12:36)
[2021-01-31] MEDS ORDERED: LIDOCAINE 2% PF 5 ML VIAL. ONE (12:51)
[2021-01-31] MEDS ORDERED: PROPOFOL 10 MG/ML (20ML) VIAL. IV ONE (12:51)
[2021-01-31] MEDS ORDERED: fentaNYL PF VIAL 100 MCG/2 ML VIAL ONE ×2 (13:04→16:00)
[2021-01-31] MEDS ORDERED: ONDANSETRON PF 4 MG/2 ML VIAL. ONE (13:09)
[2021-01-31] MEDS ORDERED: DEXAMETHASONE SOD PHOS 4 MG/ML VIAL ONE (13:09)
[2021-01-31] MEDS ORDERED: PHENYLEPHRINE in 0.9% NACL PF 1 MG/10 ML SYRINGE. IV ONE (14:01)
[2021-01-31] MEDS ORDERED: ePHEDrine PF IN SALINE 50 MG/10 ML SYRINGE. IV ONE (14:01)
--- NOTE | 2021-01-31 14:28 | RAD ---
EXAM: Sonographic guided right breast needle-wire localization; right breast post localization mammog derian. HISTORY: 70-year-old female presents for sonographic guided needle-wire localization of a biopsy-prov en malignancy within the 9:30 position of the right breast prior to lumpectomy. TECHNIQUE: The risks of the procedure discussed with the patient and written informed consent was obt ained. A timeout was performed. Sonographic imaging of the lesion of concern at the 9:30 position was performed and the skin overlying this region was sterilely prepped, draped and infiltrated with 1 pe rcent lidocaine. A needle wire system was advanced into the lesion and the wire was deployed slightly beyond the lesion and immediately adjacent to the biopsy clip. The wire was secured to the skin surf toi. A post biopsy mammogram demonstrates the wire in expected position through the lesion of concern and immediately adjacent to a biopsy clip. The patient tolerated the procedure without difficulty an d was transferred to the surgical suite in stable condition. A specimen radiograph demonstrates inclusion of the mass and biopsy clip within the specimen. IMPRESSION: Successful sonographic guided needle-wire localization of a biopsy-proven malignancy with in the 9:30 position of the right breast. There is successful inclusion of the mass and associated bi opsy clip within a surgical specimen. Electronically signed by: Nataliya Clement MD (01/31/2021 2:25 PM) [id number]
--- NOTE | 2021-01-31 14:31 | RAD ---
EXAM: Sonographic guided right breast needle-wire localization; right breast post localization mammog derian; right breast specimen radiograph. HISTORY: 70-year-old female presents for sonographic guided needle-wire localization of a biopsy-prov en malignancy within the 9:30 position of the right breast prior to lumpectomy. TECHNIQUE: The risks of the procedure discussed with the patient and written informed consent was obt ained. A timeout was performed. Sonographic imaging of the lesion of concern at the 9:30 position was performed and the skin overlying this region was sterilely prepped, draped and infiltrated with 1 pe rcent lidocaine. A needle wire system was advanced into the lesion and the wire was deployed slightly beyond the lesion and immediately adjacent to the biopsy clip. The wire was secured to the skin surf toi. A post biopsy mammogram demonstrates the wire in expected position through the lesion of concern and immediately adjacent to a biopsy clip. The patient tolerated the procedure without difficulty an d was transferred to the surgical suite in stable condition. A specimen radiograph demonstrates inclusion of the mass and biopsy clip within the specimen. IMPRESSION: Successful sonographic guided needle-wire localization of a biopsy-proven malignancy with in the 9:30 position of the right breast. There is successful inclusion of the mass and associated bi opsy clip within a surgical specimen. Electronically signed by: Nataliya Clement MD (01/31/2021 2:28 PM) [id number]
[2021-01-31] MEDS ORDERED: SEVOFLURANE 61 TO 120 MINUTES. IH ONE (14:43)
--- NOTE | 2021-01-31 15:08 | PDOC4 ---
Operative Note Operative Note Operative Note: Preoperative Diagnosis: Right breast cancer Postoperative Diagnosis: Same Procedure: Right lumpectomy with wire localization, sentinel lymph node biopsy, axillary dissection Surgeon: Victor Manuel Drafting Engineer: SEGUNDO Kaye Anesthesia: General EBL: 20 mL Specimen: Right lumpectomy, short stitch superficial long stitch lateral to pathology, additional margins (superior, inferior, medial, lateral, anterior, deep), axillary contents to pathology Drains: None Complications: None Indication: The patient is a 70-year-old female who was recently diagnosed with right breast cancer. We reviewed with her surgical options and she prefers breast preservation. The plan is for a right lumpectomy with wire localization and sentinel lymph node biopsy. The risks of surgery were discussed which include bleeding, infection, pain, anesthetic risk, potential need for additional surgery procedure pending final pathology. She understands and would like to proceed. Description: Patient was taken initially to radiology where she underwent wire localization of the mass as well as injection of technetium sulfur colloid. She was then brought to the operating room. She was placed supine on the operating table. General anesthesia was performed. The right breast was prepped with ChloraPrep and draped in a standard surgical manner. Five mL of Lymphazurin were injected deep to the nipple areolar complex. Several minutes were allowed to elapse. A small incision was made in the skin lines of the right axilla. Cautery dissection was carried down through the subcutaneous tissues. With the radio guided probe we attempted to find an area of increased nuclear uptake. Thorough evaluation showed no area of focal uptake. In addition there was no blue staining lymph nodes or channels. The sentinel lymph node technique did not appear to work. We therefore proceeded with an axillary dissection. The boundaries of the dissection included the axillary vein superiorly, the pectoralis muscle medially, and the latissimus muscle laterally. In a superior to inferior manner the lymphovascular tissue was mobilized from the surrounding tissues. The long thoracic and thoracodorsal nerves were identified and preserved. A couple of small venous branches supplying the axillary contents were ligated with 2-0 Vicryl and divided. The axillary tissue was then fully excised and sent to pathology in formalin. We then proceeded with the lumpectomy. The wire was exiting in the lateral aspect and the tumor was located near the 9 o'clock position. A curved incision was made in the skin lines near the 9 o'clock position of the right breast along the lateral aspect. Cautery dissection was carried down into the breast parenchyma. The wire was readily identified. With cautery dissection the wire was followed toward its distal tip. A generous lumpectomy specimen was performed with efforts made to obtain a margin around the tumor which did become palpable. The lumpectomy specimen was marked with a short stitch superficially and a long stitch laterally. The specimen was fully excised and radiographic evaluation confirmed the clip and mass to be present. The specimen was then sent to pathology. We elected for additional margins in all directions of the biopsy cavity. Additional margins were obtained with cautery and all were marked appropriately and sent to pathology. Hemostasis was achieved with cautery. No other abnormalities were noted. The subcutaneous tissue of both incisions was approximated with 3-0 Vicryl. The skin was closed with 4-0 Monocryl and sterile dressings were applied. The patient tolerated the procedure well and was sent to the covering room in stable condition. At the end of the case all counts were correct. VICTORIANO COONNELL MD January 31, 2021 15:08
[2021-01-31] MEDS ORDERED: 0.9 % SODIUM CHLORIDE 10 ML DISP.SYRIN. IV PRN (15:15)
[2021-01-31] MEDS ORDERED: HYDROcodone/APAP 5/325MG 1 TAB TABLET PO PRN ×2 (15:15)
[2021-01-31] MEDS ORDERED: ONDANSETRON PF 4 MG/2 ML VIAL. IVP PRN (15:15)
[2021-01-31] MEDS ORDERED: NALOXONE 0.4 MG/ML VIAL. IV PRN (15:15)
[2021-01-31] MEDS ORDERED: IV NORMAL SALINE 1000ML BAG 1,000 ML IV SCH (15:15)
[2021-01-31] MEDS ORDERED: HYDROmorphone 2 MG/ML VIAL IV PRN (15:15)
[2021-01-31] MEDS: fentaNYL PF VIAL 100 MCG/2 ML VIAL IVP PRN ×2 (16:03→16:19)
[2021-01-31] MEDS: IV 1/2 NORMAL SALINE 1,000 ML IV SCH (18:00)
[2021-01-31] MEDS: BUDESONIDE 0.5 MG/2 ML NEBU. NEB SCH (20:00)
[2021-01-31] MEDS: SUCRALFATE 1 GM TABLET. PO SCH (20:04)
[2021-01-31] MEDS: METOPROLOL TART IMMED RELEASE 25 MG TABLET. PO SCH (20:04)
[2021-01-31] MEDS: ACETAMINOPHEN 325 MG TABLET. PO PRN (20:57)
[2021-01-31] MEDS ORDERED: ATORVASTATIN CALCIUM 40 MG TABLET. PO SCH (21:00)
[2021-01-31] MEDS ORDERED: FAMOTIDINE 20 MG TABLET. PO SCH (21:00)
[2021-02-01 03:00] VITALS: BP 116/85
[2021-02-01] MEDS: ACETAMINOPHEN 325 MG TABLET. PO PRN (06:23)
[2021-02-01 06:28] VITALS: BP 109/65
[2021-02-01] MEDS: IV 1/2 NORMAL SALINE 1,000 ML IV SCH (07:20)
[2021-02-01] MEDS ORDERED: PANTOPRAZOLE 40 MG TABLET.DR. PO SCH (07:30)
[2021-02-01] MEDS: BUDESONIDE 0.5 MG/2 ML NEBU. NEB SCH (08:00)
[2021-02-01] MEDS: SUCRALFATE 1 GM TABLET. PO SCH (08:11)
[2021-02-01 08:14] VITALS: BP 123/72
--- NOTE | 2021-02-01 08:50 | DISCH ---
DISCHARGE INSTRUCTIONS Condition on Discharge Condition on Discharge: Stable Activity After Discharge Activity Instructions for Disc: Activity as tolerated Bathing Instructions: Shower-keep dressing dry Lifting Instructions after Dis: No heavy lifting, No pulling or pushing Driving Instructions after Dis: Do not drive today Diet after Discharge Diet after Discharge: Cardiac, Regular Wound Incision Care Wound/Incision Care: Do not change dressing, Reinforce dressing PRN Community/Resources/Services Services at Discharge: OT Evaluate & Treat Contacting the after DC Call your doctor for: If your condition worsens Follow-Up Follow up with: Dr Rush 02/08/21 130pm, questions call [phone] CHIQUIS WORTHY CRAWLER TRACTOR OPERATOR February 01, 2021 08:50
--- NOTE | 2021-02-01 08:52 | PDOC ---
CHIQUIS WORTHY APRN 02/01/21 0851: SURGICAL PROGRESS NOTE DATE: 02/01/21 TIME: 08:50 Subjective doing well minimal pain ready to go home Vital Signs Vital Signs Date Time Temp Pulse Resp B/P (MAP) Pulse Ox O2 Delivery O2 Flow Rate FiO2 02/01/21 08:14 83 123/72 02/01/21 08:00 Room Air 02/01/21 06:28 98.2 17 96 10.0 98.2 I&O Intake and Output 02/01/21 07:00 Intake Total 1130 ml Output Total 1020 ml Balance 110 ml Intake Oral 180 ml IV Total 950 ml Output Urine Total 1000 ml Estimated Blood Loss 20 ml # Voids 2 # Bowel Movements 1 General: Alert, Oriented X3, Cooperative Skin: Other (incision dressings intact ) Assessment/Plan stable dc home FU in clinic Justicifation of Admission Dx: Justifications for Admission: Justification of Admission Dx: Yes Comments: breast cancer VICTORIANO OCONNELL MD 02/01/21 1113: SURGICAL PROGRESS NOTE Assessment/Plan Agree with above CHIQUIS WORTHY APRN February 01, 2021 08:51 VICTORIANO OCONNELL MD February 01, 2021 11:13
--- NOTE | 2021-02-01 08:53 | PDOC3 ---
Discharge Summary Visit Information Date of Admission: January 31, 2021 Date of Discharge: February 01, 2021 Admitting Diagnosis: right breast cancer Final Diagnosis right breast cancer Brief Hospital Course Allergies Allergies Coded Allergies Type Severity Reaction Last Updated Verified No Known Drug Allergies 06/30/19 No Vital Signs Vital Signs Date Time Temp Pulse Resp B/P (MAP) Pulse Ox O2 Delivery O2 Flow Rate FiO2 02/01/21 08:14 83 123/72 02/01/21 08:00 Room Air 02/01/21 06:28 98.2 17 96 10.0 98.2 Brief Hospital Course Ms. Walker is a 70 old female who underwent Right lumpectomy with wire loca lization, sentinel lymph node biopsy, axillary dissection. Postoperatively tolerating diet, ambulating, and pain controlled. Ready for discharge home. Discharge Information Condition at Discharge: Stable Follow Up: Weeks (1) Disposition/Orders: D/C to Home Scheduled Aspirin (Aspirin Ec) 81 Mg Tablet., 1 TAB PO DAILY for CAD, #30 Ref 3 Prescribed by: BRYAN LEGGETT on 07/02/19 1522 Last Taken: Unknown Dose on 01/27/21 Last Action: Continued on 01/31/21 151 by VICTORIANO OCONNELL Atorvastatin Calcium (Lipitor) 40 Mg Tablet, 1 TAB PO QHS for cholestrol, #90 Ref 1 (Reported) Entered as Reported by: ALLY SCHAFER on 07/02/19 1417 Last Action: Continued on 01/31/211511 by VICTORIANO OCONNELL Beclomethasone Dipropionate (Qvar Redihaler) 10.6 Gm Hfa.aeroba, 2 PUFF IH BID for ASTHMA for 30 Days, #1 Ref 0 (Reported) Entered as Reported by: EBER WHITNEY on 01/28/21 1343 Last Action: Converted on 01/31/21 151 by VICTORIANO OCONNELL Esomeprazole Magnesium (Nexium Capsule) 40 Mg Capsule., 40 MG PO DAILY for GERD, #30 Ref 0 (Reported) Entered as Reported by: ALLY SCHAFER on 07/02/19 1501 Last Taken: Unknown Dose on 01/31/21 0630 Last Action: Converted on 01/31 151 by VICTORIANO OCONNELL Famotidine (Pepcid) 20 Mg Tablet, 20 MG PO BID for GERD, (Reported) Entered as Reported by: EBER WHITNEY on 01/28/21 1343 Last Taken: Unknown Dose on 01/31/21 0630 Last Action: Continued on 01/31/211511 by VICTORIANO OCONNELL Fexofenadine Hcl (Fexofenadine Hcl) 180 Mg Tablet, 180 MG PO HS for allergies, (Reported) Entered as Reported by: ALLY SCHAFER on 07/02/19 1502 Last Action: Converted on 01/31/211511 by VICTORIANO OCONNELL Hydrochlorothiazide (Hydrochlorothiazide Tablet) 12.5 Mg Tablet, 12.5 MG PO DAILY for DIURETIC for 30 Days, #30 Ref 0 Prescribed by: BRYAN LEGGETT on 07/02/19 1538 Last Action: Converted on 01/31/211511 by VICTORIANO OCONNELL Loperamide Hcl (Loperamide) 2 Mg Tablet, 6 MG PO DAILY for DIARRHEA, (Reported) Entered as Reported by: EBER WHTINEY on 01/28/21 1343 Last Action: HELD on 01/31/211511 by VICTORIANO OCONNELL Losartan Potassium (Losartan Potassium) 50 Mg Tablet, 25 MG PO DAILY for HYPERTENSION, (Reported) Entered as Reported by: EBER WHITNEY on 01/28/21 1343 Last Taken: Unknown Dose on 01/31/21 0630 Last Action: Continued on 01/31/211511 by VICTORIANO OCONNELL Metoprolol Tartrate (Metoprolol Tartrate) 25 Mg Tablet, 1 TAB PO BID for heart/BP, #180 Ref 1 (Reported) Entered as Reported by: ALLY SCHAFER on 07/02/19 1419 Last Taken: Unknown Dose on 01/30/21 1900 Last Action: Continued on 01/31/211511 by VICTORIANO OCONNELL Mometasone Furoate (Nasonex) 17 Gm [place].pump, 1 SPRAY NS DAILY for allergies, (Reported) Entered as Reported by: ALLY SCHAFER on 07/02/19 1500 Last Action: Converted on 01/31/211511 by VICTORIANO OCONNELL Pseudoephedrine Hcl (Pseudoephedrine) 120 Mg Tablet.er, 30 MG PO HS for allergies, (Reported) Entered as Reported by: ALLY SCHAFER on 07/02/19 1503 Last Action: HELD on 01/31/211511 by VICTORIANO OCONNELL Sucralfate (Sucralfate) 1 Gm Tablet, 1 TAB PO BID for GERD, #90 Ref 11 (Reported) Entered as Reported by: ALLY SCHAFER on 07/02/19 1501 Last Action: Continued on 01/31/211511 by VICTORIANO OCONNELL Scheduled PRN Acetaminophen (Tylenol) 325 Mg Tablet, 650 MG PO PRN Q8HRS PRN for PAIN, (Reported) Entered as Reported by: EBER WHITNEY on 01/28/21 1343 Last Action: HELD on 01/31/211511 by VICTORIANO OCONNELL Albuterol Sulfate (Proair Hfa Inhaler) 8.5 Gm Hfa.aer.ad, 1 PUFF INH BID PRN for SHORTNESS OF BREATH, Ref 0 (Reported) Entered as Reported by: ALLY SCHAFER on 07/02/19 1500 Last Action: HELD on 01/31/211511 by VICTORIANO OCONNELL [Lidoderm Patch] , 1 PATCH TOP PRN DAILY PRN for PAIN, (Reported) Entered as Reported by: EBRE WHITNEY on 01/28/21 134 Last Action: HELD on 01/31/211511 by VICTORIANO OCONNELL Discontinued Medications Estrogens, Conjugated (Premarin) 0.625 Mg Tablet, 0.625 MG PO DAILY for hormone, (Reported) Entered as Reported by: ALLY SCHAFER on 07/02/19 1457 Lisinopril (Prinivil) 10 Mg Tablet, 1 TAB PO DAILY for heart/BP, #90 Ref 1 (Reported) Entered as Reported by: ALLY SCHAFER on 07/02/19 1420 Loperamide HCl (Imodium A-D) 2 Mg Capsule, 4 MG PO DAILY for diarrhea, (Reported) Entered as Reported by: ALLY SCHAFER on 07/02/19 1503 Medroxyprogesterone Acetate (Medroxyprogesterone Acetate) 2.5 Mg Tablet, 5 MG PO DAILY for hormone, (Reported) Entered as Reported by: ALLY SCHAFER on 07/02/19 1457 Multivitamin (Multivitamins) 1 Each Tablet, 1 TAB PO DAILY for general health, #90 Ref 3 (Reported) Entered as Reported by: ALLY SCHAFER on 07/02/19 1503 Ranitidine Hcl (Ranitidine Hcl) 300 Mg Capsule, 300 MG PO BID for GERD, (Reported) Entered as Reported by: ALLY SCHAFER on 07/02/19 1458 Ticagrelor (Brilinta) 90 Mg Tablet, 90 MG PO BID for blood thinner, (Reported) Entered as Reported by: ALLY SCHAFER on 07/02/19 1416 Justicifation of Admission Dx: Justifications for Admission: Justification of Admission Dx: Yes CHIQUIS WORTHY APRN February 01, 2021 08:53
[2021-02-01] MEDS ORDERED: LOSARTAN POTASSIUM 25 MG TABLET. PO SCH (09:00)
[2021-02-01] MEDS ORDERED: hydroCHLOROthiazide 12.5 MG CAPSULE PO SCH (09:00)
[2021-02-01] MEDS ORDERED: FLUTICASONE 50MCG/NASAL SPRAY 16GM BOTTLE. NS SCH (09:00)
[2021-02-01] MEDS ORDERED: ASPIRIN ENTERIC COATED 81 MG TABLET.DR. PO SCH (09:00)
[2021-02-01] MEDS ORDERED: CETIRIZINE HCL 10 MG TABLET. PO SCH (09:00)
[2021-02-01] MEDS: METOPROLOL TART IMMED RELEASE 25 MG TABLET. PO SCH (09:00)
--- NOTE | 2021-02-01 09:00 | NUR ---
Doing well, anxious to go home today. Moving around room without difficulty. Did not give pt metoprolol and HCTZ this am. Pt states takes it later in afternoon. Took her own Flonase and own hailer this am.
--- NOTE | 2021-02-01 10:00 | NUR ---
Faxed prescription for the [facility]ymphedema clinic and face sheet. They will contact patient to set up appointment.
--- NOTE | 2021-02-01 10:05 | NUR ---
Discharged instructions given. Answered questions and concerns. Verbalized understanding. Waiting for ride home. Cont. monitor.
--- NOTE | 2021-02-01 11:00 | NUR ---
Spouse here to take patient home. Escorted out by w/c.
--- NOTE | 2021-02-01 11:38 | NUR ---
SW following. Discussed with RN, discharge order for home with self care. RN advised no SW needs. SW will continue to follow.
--- NOTE | 2021-02-03 18:15 | PATHOLOGY ---
[facility] Accession Number: [id number] . 01 Material submitted: . PART A: breast - RIGHT LUMPECTOMY. Modifiers: right PART B: axillary tail of breast - RIGHT AXILLARY DISSECTION. Modifiers: right PART C: breast - SUPERIOR MARGIN. Modifiers: superior PART D: breast - MEDIAL MARGIN. Modifiers: medial PART E: breast - INFERIOR MARGIN. Modifiers: inferior PART F: breast - LATERAL MARGIN. Modifiers: lateral PART G: breast - ANTERIOR MARGIN. Modifiers: anterior PART H: breast - DEEP MARGIN. Modifiers: DEEP . 01 Clinical history: . RIGHT BREAST LUMPECTOMY . SHORT STITCH-SUPERFICIAL LONG STITCH-LATERAL BREAST CANCER . 02 Diagnosis: A. Breast tissue, right breast lumpectomy: - Invasive ductal carcinoma, histologic grade II, measuring up to 1.3 cm in greatest dimension. - Ductal carcinoma in situ, intermediate grade, solid, focal. - Invasive carcinoma is focally present at the lateral margin. - Focal perineural tumor invasion identified. - Previous biopsy site changes. - Duct ectasia, focal. (JPM:drug coordinator; 02/02/2021) . B. Lymph nodes and adipose tissue, right axillary dissection: - Nine lymph nodes negative for tumor (0/9). . C. Breast tissue, superior margin: - Fatty breast tissue showing small focus of apocrine metaplasia - negative for tumor. . D. Breast tissue, medial margin: - Fatty breast tissue showing focal duct ectasia, stromal fibrosis, and apocrine metaplasia - negative for tumor. . E. Breast tissue, inferior margin: - Fatty breast tissue showing focal mild duct ectasia - negative for tumor. . F. Breast tissue, lateral margin: - Fatty breast tissue - negative for tumor. . G. Breast tissue, anterior margin: - Fatty breast tissue showing focal duct ectasia, stromal fibrosis, and papillary apocrine metaplasia - negative for tumor. . H. Breast tissue, deep margin: - Fatty breast tissue - negative for tumor. . (JPM:mml; 02/03/2021) . . . Surgical Pathology Cancer Case Summary . INVASIVE CARCINOMA OF THE BREAST: Resection . Procedure ___ Other: Lumpectomy . Specimen Laterality ___ Right . + Tumor Site + ___ Clock position: 9:30 o'clock . Tumor Size ___ Greatest dimension of largest invasive focus >1 mm: 13 mm . Histologic Type ___ Invasive carcinoma of no special type (ductal) . Histologic Grade ([place] Histologic Score) . Glandular (Acinar)/Tubular Differentiation ___ Score 3 (<10% of tumor area forming glandular/tubular structures) . Nuclear Pleomorphism ___ Score 2 (cells larger than normal with open vesicular nuclei, visible nucleoli, and moderate variability in both size and shape) . Mitotic Rate ___ Score 2 . Overall Grade ___ Grade 2 (scores of 6 or 7) . + Tumor Focality + ___ Single focus of invasive carcinoma . Ductal Carcinoma In Situ (DCIS) ___ Present + ___ Negative for extensive intraductal component (EIC) . + Size (Extent) of DCIS + Estimated size (extent) of DCIS is at least: 1 mm . + Architectural Patterns + ___ Solid . + Nuclear Grade + ___ Grade II (intermediate) . + Necrosis + ___ Not identified . + Lobular Carcinoma In Situ (LCIS) + ___ Not identified . Margins . Invasive Carcinoma Margins ___ Positive for invasive carcinoma . Margin involved: Lateral margin, focal . DCIS Margins ___ Uninvolved by DCIS . + Distance from closest margin: 4 mm . Specify closest margin: Lateral margin . Regional Lymph Nodes ___ Uninvolved by tumor cells Total Number of Lymph Nodes Examined: 9 . + Lymphovascular Invasion + ___ Not identified . Pathologic Stage Classification (pTNM, AJCC 8th Edition) . Primary Tumor (pT) ___ pT1c:Tumor >10 mm but < than or = to 20 mm in greatest dimension . Regional Lymph Nodes (pN) ___ pN0:No regional lymph node metastasis identified or ITCs only# . + Additional Pathologic Findings: See diagnoses . + Microcalcifications + ___ Not identified . (JPM:yojana; 02/03/2021) MBR 02/03/2021 1715 Local . 02 Electronically signed: . Antonino Medrano MD, Pathologist NPI- [id number] . 01 Gross description: . A. Fixative: Formalin Labeled: R lumpectomy Specimen received: Oriented lumpectomy Oriented: Short superficial/anterior, long lateral Weight: 68 g Dimensions: 9.9 cm superior to inferior, 6.9 cm superficial/anterior to deep/posterior, and 2.1 cm medial to lateral . The specimen is inked as follows: Superior-blue Inferior-green Superficial/anterior-black Deep/posterior-orange Lateral-red Medial-yellow . Sectioned from: Superior to inferior Number of slices: 23 Lesion: 1.0 x 0.9 x 0.8 cm Lesion location: Slices 12 through 15 . Lesion to margins: 4.6 cm to superior 3.6 cm to inferior 1.1 cm to anterior 3.4 cm to posterior Grossly approaches lateral 1.8 cm to medial . Biopsy clip: Present in slice 14 Uninvolved breast parenchyma: Bright yellow, lobulated . The specimen is submitted as follows: . A1 slice 1 (most superior margin), serially sectioned A2 slice 2 A3 slice 3 A4 claim representative slice 4 A5 claim representative slice 5 A6 claim representative slice 6 A7 claim representative slice 7 A8 claim representative slice 8 A9 claim representative slice 9 A10 claim representative slice 10 A11 claim representative slice 11 A12 claim representative slice 12 with lesion A13 claim representative slice 13 with lesion A14 claim representative slice 14 with lesion A15 claim representative slice 15 with lesion A16 claim representative slice 16 A17 claim representative slice 17 A18 claim representative slice 18 A19 claim representative slice 19 A20 claim representative slice 20 A21 claim representative slice 21 A22 claim representative slice 22 A23-A24 slice 23 (most inferior margin), serially sectioned. . The specimen is removed from the patient at 1404 and placed in formalin at 1422 on 01/31/2021. The specimen is removed from formalin at 1850 on 02/01/2021. The specimen is in formalin for greater than 6 hours and less than 72 hours. . B. The specimen is received in formalin, labeled "Tate Glaser axillary dissection". Received is a segment of yellow-rose lobulated tissue measuring 7.7 x 5.9 x 2.2 cm in greatest dimensions. Dissection and palpation of the specimen reveals nine lymph nodes ranging in size from 0.2-4.3 cm in maximum dimensions. The lymph nodes are submitted entirely as follows: . B1-B2 intact lymph nodes B3-B4 one bisected lymph node in each cassette B5-B8 largest lymph node, serially sectioned. . C. Fixative: Formalin Labeled: Superior margin Specimen received: Segment of bright yellow lobulated tissue Weight: 3 g Oriented: No Dimensions: 3.5 x 2.6 x 1.0 cm Inked: Blue . Serially sectioned and entirely submitted in C1 through C6. . The cold ischemic time and time in formalin are not provided. The time out of formalin is 2340 on 02/01/2021. . D. Fixative: Formalin Labeled: Medial margin Specimen received: Segment of bright yellow lobulated tissue Weight: 3 g Oriented: No Dimensions: 3.1 x 2.9 x 0.8 cm Inked: Yellow . Serially sectioned and entirely submitted in D1 through D6. . The cold ischemic time and time in formalin are not provided. The time out of formalin is 2340 on 02/01/2021. . E. Fixative: Formalin Labeled: Inferior margin Specimen received: Segment of bright yellow lobulated tissue Weight: 3 g Oriented: No Dimensions: 3.5 x 2.5 x 0.8 cm Inked: Green . Serially sectioned and entirely submitted in E1 through E5. . The cold ischemic time and time in formalin are not provided. The time out of formalin is 2340 on 02/01/2021. . F. Fixative: Formalin Labeled: Lateral margin Specimen received: Segment of bright yellow lobulated tissue Weight: 4 g Oriented: No Dimensions: 4.5 x 2.8 x 0.9 cm Inked: Red . Serially sectioned and entirely submitted in F1 through F6. . The cold ischemic time and time in formalin are not provided. The time out of formalin is 2340 on 02/01/2021. . G. Fixative: Formalin Labeled: Anterior margin Specimen received: Segment of bright yellow lobulated tissue Weight: 2 g Oriented: No Dimensions: 2.7 x 2.5 x 0.8 cm Inked: Black . Serially sectioned and entirely submitted in G1 through G4. . The cold ischemic time and time in formalin are not provided. The time out of formalin is 2340 on 02/01/2021. . H. Fixative: Formalin Labeled: Deep margin Specimen received: Segment of bright yellow lobulated tissue Weight: 7 g Oriented: No Dimensions: 4.5 x 3.2 x 1.2 cm Inked: [place] . Serially sectioned and entirely submitted in H1 through H10. . The cold ischemic time and time in formalin are not provided. The time out of formalin is 2340 on 02/01/2021. (CAA; 02/01/2021) [facility] 02/01/2021 1644 Local . 02 Pathologist provided ICD-10: C50.911, D05.11, N60.41, N60.81, N60.31 . 02 CPT . 404983, 757994, 509391, 715156, 550476, 906196, [id number], [id number] Specimen Comment: A courtesy copy of this report has been sent to [phone], [phone] Specimen Comment: [id number] Specimen Comment: Report sent to / DR GUPTA Performed at: 01 [facility] [address], [place], [place] [id number] MD Angelito Noland MD Phone: [phone] Performed at: 02 [facility] [address], [place] [id number] MD Antonino Medrano MD Phone: [phone]
== END 2021-02-01 11:00 | disposition home or self-care (01) ==
LOC: SURG 09:31 → 4 SOUTHEST 15:08
PROVIDERS: ADMIT Surgery; ATTEND Surgery
DX: C50.911 Malignant neoplasm of unspecified site of right female breast (principal); R92.8 Other abnormal and inconclusive findings on diagnostic imaging of breast; I10 Essential (primary) hypertension; E66.9 Obesity, unspecified; I25.10 Atherosclerotic heart disease of native coronary artery without angina pectoris; Z68.36 Body mass index [BMI] 36.0-36.9, adult; Z79.899 Other long term (current) drug therapy
CPT/HCPCS: 19285; 19301; 38525; 38792; 76098; 77065; 88307; A4209; A4930; A6254; A6258; A9520; C1819; G0378; G0379; J0690; J1100; J2370; J2405; J2704; J3010; Q9968; 96374

== ENCOUNTER → 2021-03-08 | Outpatient (CLI) | payer MEDICARE, BC ==
[~2021-03-08] MED LIST changes: -HYDROmorphone 2 MG/ML VIAL IVP PRN; -IV RINGERS,LACTATED 1000ML 1,000 ML IV SCH; -MORPHINE SULFATE 2 MG/ML VIAL. IVP PRN; -PROCHLORPERAZINE 10 MG/2 ML VIAL. IVP PRN; -fentaNYL PF VIAL 100 MCG/2 ML VIAL IVP PRN
[2021-03-08 12:55] LABS: BASO % 1 % (0-3); EOS # 0.3 x10^3/uL (0.0-0.7); EOS % 4 % (0-3); HEMATOCRIT 38.3 % (36.0-47.0); HEMOGLOBIN 12.6 g/dL (12.0-15.5); LYMPH # 2.5 x10^3/uL (1.0-4.8); LYMPH % 33 % (24-48); MEAN CORPUSCULAR HEMOGLOBIN 29 pg (25-35); MEAN CORPUSCULAR HGB CONC 33 g/dL (31-37); MEAN CORPUSCULAR VOLUME 88 fL (79-100); MONO # 0.7 x10^3/uL (0.0-1.1); MONO % 10 % (0-9); NEUT # 4.1 x10^3/uL (1.8-7.7); NEUT % 53 % (31-73); PLATELET COUNT 327 x10^3/uL (140-400); RED BLOOD COUNT 4.34 x10^6/uL (3.50-5.40); RED CELL DISTRIBUTION WIDTH 14.3 % (11.5-14.5); WHITE BLOOD COUNT 7.7 x10^3/uL (4.0-11.0)
[2021-03-08 13:08] LABS: CALCIUM 8.9 mg/dL (8.5-10.1); CREATININE 1.2 mg/dL (0.6-1.0); GFR 44.2
[2021-03-08 13:12] LABS: ALBUMIN 3.6 g/dL (3.4-5.0); ALBUMIN/GLOBULIN RATIO 0.9 (1.0-1.7); MAGNESIUM 1.8 mg/dL (1.8-2.4); TOTAL BILIRUBIN 0.4 mg/dL (0.2-1.0); TOTAL PROTEIN 7.4 g/dL (6.4-8.2)
== END ==
LOC: SPEC 12:17
PROVIDERS: ATTEND Physician Assistant
DX: C50.011 Malignant neoplasm of nipple and areola, right female breast (principal)
CPT/HCPCS: 36415; 80053; 83615; 83735; 85025

== ENCOUNTER → 2021-03-14 | Outpatient (CLI) | payer MEDICARE, BC ==
--- NOTE | 2021-03-14 16:05 | KCIC ---
EXAM: DUAL ENERGY X-RAY ABSORPTIOMETRY (DEXA). HISTORY: Postmenopausal screening. FINDINGS: The lowest measured T-score is -0.3 in the left total femur, based on a bone mineral densit y of 0.907 g/cm^2. Refer to the worksheets for full detail. No comparison examinations are available. IMPRESSION: Normal. Bone mineral density yields a T-score of -1.0 or greater. Fracture risk is low. FRAX was not calculated. METHODOLOGY: Dual energy x-ray absorptiometry was performed to measure bone mineral density. The foll owing analysis is based on the 2019 Official Positions of the International Society for Clinical Dens itometry: Measurements of the hips and the average of L1-L4 are preferred. When the spine and/or hip cannot be feasibly measured or interpreted, or in the setting of hyperparathyroidism, distal radial bone minera l density may be measured. The lumbar spine T-score is based on the average bone mineral density of L1-L4. In the setting of art ifact or anatomic abnormality, some lumbar levels may be excluded, and the remaining levels used for calculation. A single lumbar level is not used for diagnosis, and if only a single level is available for assessment, another anatomic site will be used to assign a diagnosis. The hip T-score is based on the bone mineral density measurement of the femoral neck or total proxima l femur of either side, whichever is lowest. Bilateral mean values are not used for diagnosis. The forearm T-score is derived from 33% of the distal radius of the nondominant forearm. For postmenopausal and perimenopausal women, and men age 50 or older, of all ethnic groups, T-scores are calculated through comparison of the current measurement with the NHANES III database standard fo r females aged 20-29 years. The lowest T-score of the evaluated anatomic sites is used to a ssign a diagnosis based on the World Health Organization densitometric classification. In premenopausal females and males younger than age 50, a Z-score is calculated based on population s pecific reference data for patient sex and self-reported ethnicity. Electronically signed by: Talat Cedeño MD (03/14/2021 4:02 PM) ERYN
== END ==
LOC: KCIC DEXA 15:30
PROVIDERS: ATTEND Internal Medicine Hematology & Oncology
DX: D05.11 Intraductal carcinoma in situ of right breast (principal); Z79.811 Long term (current) use of aromatase inhibitors
CPT/HCPCS: 77080

== ENCOUNTER → 2021-03-23 | Outpatient (CLI) | payer MEDICARE, BC ==
[2021-03-23 15:18] LABS: BASO % 0 % (0-3); EOS # 0.3 x10^3/uL (0.0-0.7); EOS % 3 % (0-3); HEMATOCRIT 38.5 % (36.0-47.0); HEMOGLOBIN 12.9 g/dL (12.0-15.5); LYMPH # 2.8 x10^3/uL (1.0-4.8); LYMPH % 33 % (24-48); MEAN CORPUSCULAR HEMOGLOBIN 29 pg (25-35); MEAN CORPUSCULAR HGB CONC 33 g/dL (31-37); MEAN CORPUSCULAR VOLUME 88 fL (79-100); MONO # 0.7 x10^3/uL (0.0-1.1); MONO % 8 % (0-9); NEUT # 4.6 x10^3/uL (1.8-7.7); NEUT % 55 % (31-73); PLATELET COUNT 331 x10^3/uL (140-400); RED BLOOD COUNT 4.37 x10^6/uL (3.50-5.40); RED CELL DISTRIBUTION WIDTH 14.5 % (11.5-14.5); WHITE BLOOD COUNT 8.4 x10^3/uL (4.0-11.0)
[2021-03-23 15:47] LABS: CALCIUM 8.9 mg/dL (8.5-10.1); CREATININE 1.1 mg/dL (0.6-1.0); GFR 48.8; POTASSIUM 3.6 mmol/L (3.5-5.1)
[2021-03-23 15:55] LABS: ALBUMIN 3.7 g/dL (3.4-5.0); TOTAL BILIRUBIN 0.3 mg/dL (0.2-1.0); TOTAL PROTEIN 7.5 g/dL (6.4-8.2)
== END ==
LOC: ONCLAB 14:44
PROVIDERS: ATTEND Physician Assistant
DX: C50.011 Malignant neoplasm of nipple and areola, right female breast (principal)
CPT/HCPCS: 36415; 80053; 85025

== ENCOUNTER → 2021-04-06 | Outpatient (CLI) | payer MEDICARE, BC ==
[2021-04-06 13:33] LABS: CALCIUM 9.1 mg/dL (8.5-10.1); CREATININE 1.1 mg/dL (0.6-1.0); GFR 48.8; POTASSIUM 3.5 mmol/L (3.5-5.1)
[2021-04-06 13:40] LABS: ALBUMIN 3.4 g/dL (3.4-5.0); ALBUMIN/GLOBULIN RATIO 0.9 (1.0-1.7); TOTAL BILIRUBIN 0.4 mg/dL (0.2-1.0); TOTAL PROTEIN 7.3 g/dL (6.4-8.2)
[2021-04-06 13:41] LABS: BASO % 1 % (0-3); EOS # 0.2 x10^3/uL (0.0-0.7); EOS % 3 % (0-3); HEMATOCRIT 38.3 % (36.0-47.0); HEMOGLOBIN 12.6 g/dL (12.0-15.5); LYMPH % 27 % (24-48); MEAN CORPUSCULAR HEMOGLOBIN 29 pg (25-35); MEAN CORPUSCULAR HGB CONC 33 g/dL (31-37); MEAN CORPUSCULAR VOLUME 88 fL (79-100); MONO # 0.7 x10^3/uL (0.0-1.1); MONO % 9 % (0-9); NEUT # 4.3 x10^3/uL (1.8-7.7); NEUT % 60 % (31-73); PLATELET COUNT 325 x10^3/uL (140-400); RED BLOOD COUNT 4.34 x10^6/uL (3.50-5.40); RED CELL DISTRIBUTION WIDTH 14.1 % (11.5-14.5); WHITE BLOOD COUNT 7.2 x10^3/uL (4.0-11.0)
== END ==
LOC: ONCLAB 11:03
PROVIDERS: ATTEND Physician Assistant
DX: C50.011 Malignant neoplasm of nipple and areola, right female breast (principal)
CPT/HCPCS: 36415; 80053; 85025

== ENCOUNTER → 2021-06-01 | Outpatient (CLI) | payer MEDICARE, BC ==
[2021-06-01 14:23] LABS: BASO % 1 % (0-3); EOS # 0.3 x10^3/uL (0.0-0.7); EOS % 4 % (0-3); HEMATOCRIT 36.6 % (36.0-47.0); HEMOGLOBIN 12.6 g/dL (12.0-15.5); LYMPH # 2.2 x10^3/uL (1.0-4.8); LYMPH % 32 % (24-48); MEAN CORPUSCULAR HEMOGLOBIN 30 pg (25-35); MEAN CORPUSCULAR HGB CONC 34 g/dL (31-37); MEAN CORPUSCULAR VOLUME 88 fL (79-100); MONO # 0.6 x10^3/uL (0.0-1.1); MONO % 9 % (0-9); NEUT # 3.6 x10^3/uL (1.8-7.7); NEUT % 54 % (31-73); PLATELET COUNT 344 x10^3/uL (140-400); RED BLOOD COUNT 4.17 x10^6/uL (3.50-5.40); RED CELL DISTRIBUTION WIDTH 13.7 % (11.5-14.5); WHITE BLOOD COUNT 6.8 x10^3/uL (4.0-11.0)
[2021-06-01 14:35] LABS: CALCIUM 8.8 mg/dL (8.5-10.1); CREATININE 1.1 mg/dL (0.6-1.0); GFR 48.8; POTASSIUM 3.3 mmol/L (3.5-5.1)
[2021-06-01 14:40] LABS: ALBUMIN 3.4 g/dL (3.4-5.0); ALBUMIN/GLOBULIN RATIO 0.9 (1.0-1.7); TOTAL BILIRUBIN 0.3 mg/dL (0.2-1.0); TOTAL PROTEIN 7.4 g/dL (6.4-8.2)
== END ==
LOC: ONCLAB 14:04
PROVIDERS: ATTEND Physician Assistant
DX: C50.011 Malignant neoplasm of nipple and areola, right female breast (principal)
CPT/HCPCS: 36415; 80053; 85025

== ENCOUNTER → 2021-07-29 | Outpatient (CLI) | payer MEDICARE, BC ==
--- NOTE | 2021-07-30 11:33 | CARD ---
MR#: [id number] Date of Study: 07/29/2021 Ordering Physician: JOVITA WELLS, Referring Physician: Tiffani MOLINA: Madhav Rodriguez [facility] APPROVED REPORT EXAM: Two-dimensional and M-mode echocardiogram with Doppler and color Doppler. Other Information Quality : FairHR: 74bpm Rhythm : NSR INDICATION Cardiac Disease: CAD RISK FACTORS Hypertension Obesity Hyperlipidemia Family History LEFT VENTRICLE The left ventricle is normal size. There is normal left ventricular wall thickness. The left ventricu lar systolic function is normal and the ejection fraction is within normal range. LV ejection fractio n is 50 to 55%. There is normal LV segmental wall motion. Transmitral Doppler flow pattern is Grade I -abnormal relaxation pattern. No left ventricle thrombus noted on this study. There is no ventricular septal defect visualized. There is no left ventricular aneurysm. There is no mass noted in the left ventricle. RIGHT VENTRICLE The right ventricle is normal size. There is normal right ventricular wall thickness. The right ventr icular systolic function is normal. ATRIA The left atrium size is normal. The right atrium size is normal. The interatrial septum is intact wit h no evidence for an atrial septal defect or patent foramen ovale as noted on 2-D or Doppler imaging. AORTIC VALVE The aortic valve is normal in structure and function. Doppler and Color Flow revealed trace aortic re gurgitation. There is no significant aortic valvular stenosis. There is no aortic valvular vegetation . MITRAL VALVE The mitral valve is normal in structure and function. There is no evidence of mitral valve prolapse. There is no mitral valve stenosis. Doppler and Color-flow revealed trace mitral regurgitation. TRICUSPID VALVE The tricuspid valve is normal in structure and function. Doppler and Color Flow revealed trace to mil d tricuspid regurgitation. There is no tricuspid valve prolapse or vegetation. There is no tricuspid valve stenosis. PULMONIC VALVE The pulmonic valve is not well seen. Doppler and Color Flow revealed no pulmonic valvular regurgitati on. There is no pulmonic valvular stenosis. GREAT VESSELS The aortic root is normal in size. The ascending aorta is normal in size. IVC is not well seen due to poor subcostal views. PERICARDIAL EFFUSION There is no evidence of significant pericardial effusion. Critical Notification Critical Value: No <Conclusion> The left ventricle is normal size. The left ventricular systolic function is normal and the ejection fraction is within normal range. LV ejection fraction is 50 to 55%. There is normal LV segmental wall motion. Doppler and Color Flow revealed trace aortic regurgitation. There is no significant aortic valvular stenosis. Doppler and Color-flow revealed trace mitral regurgitation. Doppler and Color Flow revealed trace to mild tricuspid regurgitation. Signed by : Shawn Tyler MD Electronically Approved : 07/30/2021 11:33:21
== END ==
LOC: ECHO 15:04
PROVIDERS: ATTEND Internal Medicine Cardiovascular Disease
DX: I36.1 Nonrheumatic tricuspid (valve) insufficiency (principal); I25.10 Atherosclerotic heart disease of native coronary artery without angina pectoris
CPT/HCPCS: 93306

== ENCOUNTER → 2021-08-31 | Outpatient (CLI) | payer MEDICARE, BC ==
[~2021-08-31] MED LIST changes: -MOME17SP NS; +MOME17SP5 NS
[2021-08-31 14:52] LABS: BASO % 1 % (0-3); EOS # 0.4 x10^3/uL (0.0-0.7); EOS % 5 % (0-3); HEMATOCRIT 37.1 % (36.0-47.0); HEMOGLOBIN 12.3 g/dL (12.0-15.5); LYMPH # 2.5 x10^3/uL (1.0-4.8); LYMPH % 36 % (24-48); MEAN CORPUSCULAR HEMOGLOBIN 29 pg (25-35); MEAN CORPUSCULAR HGB CONC 33 g/dL (31-37); MEAN CORPUSCULAR VOLUME 86 fL (79-100); MONO # 0.7 x10^3/uL (0.0-1.1); MONO % 9 % (0-9); NEUT # 3.4 x10^3/uL (1.8-7.7); NEUT % 50 % (31-73); PLATELET COUNT 332 x10^3/uL (140-400); RED BLOOD COUNT 4.31 x10^6/uL (3.50-5.40); RED CELL DISTRIBUTION WIDTH 13.7 % (11.5-14.5)
[2021-08-31 14:56] LABS: CALCIUM 8.8 mg/dL (8.5-10.1); CREATININE 0.9 mg/dL (0.6-1.0); GFR 61.5; POTASSIUM 3.5 mmol/L (3.5-5.1)
[2021-08-31 15:02] LABS: ALBUMIN 3.3 g/dL (3.4-5.0); ALBUMIN/GLOBULIN RATIO 0.8 (1.0-1.7); TOTAL BILIRUBIN 0.3 mg/dL (0.2-1.0); TOTAL PROTEIN 7.6 g/dL (6.4-8.2)
== END ==
LOC: ONCLAB 14:30
PROVIDERS: ATTEND Internal Medicine Hematology & Oncology
DX: C50.011 Malignant neoplasm of nipple and areola, right female breast (principal)
CPT/HCPCS: 36415; 80053; 85025

== ENCOUNTER → 2021-11-22 | Outpatient (CLI) | payer MEDICARE, BC ==
[~2021-11-22] MED LIST changes: +FEXO-212 PO; -FEXO180T16 PO
--- NOTE | 2021-11-22 11:29 | KCIC ---
Bilateral diagnostic digital mammograms with 3-D tomosynthesis: Reason for examination: History of right breast cancer with lumpectomy. Follow-up exam. Comparison is made to previous studies dated back to 11/22/2016. Bilateral mammograms in CC and oblique projections were obtained with 2-D imaging and 3-D tomosynthes is imaging on a [employer] unit and reviewed on the workstation. Interpretation was made with the benefit of CAD. The skin and nipples show no acute abnormalities. No abnormal axillary lymph nodes are seen. The miracle st parenchyma is predominantly fatty. (Breast density: Category A.) There are postop changes with res idual seroma posteriorly at the 9:00 position. There continue to be a few scattered benign calcificat ions seen. There are no new dominant masses, suspicious calcifications or architectural distortion. Impression: Postop changes in the right breast. No evidence of new or recurrent malignancy. Recommend routine fol low-up. BI-RAD Category 2: Benign. "Our facility is accredited by the [employer] Mammography Program." This patient's information has been entered into a reminder system for the patient to be notified wit h the results of her examination and a target date for the next mammogram. Electronically signed by: Kayla Winchester MD (11/22/2021 11:27 AM) [id number]
== END ==
LOC: KCIC MAMMO 10:29
PROVIDERS: ATTEND Internal Medicine Hematology & Oncology
DX: L76.34 Postprocedural seroma of skin and subcutaneous tissue following other procedure (principal); R92.1 Mammographic calcification found on diagnostic imaging of breast; Z98.890 Other specified postprocedural states
CPT/HCPCS: 77066; G0279; 77062

== ENCOUNTER → 2021-11-29 | Outpatient (CLI) | payer MEDICARE, BC ==
[2021-11-29 15:42] LABS: BASO % 1 % (0-3); EOS # 0.2 x10^3/uL (0.0-0.7); EOS % 3 % (0-3); HEMATOCRIT 38.4 % (36.0-47.0); HEMOGLOBIN 12.6 g/dL (12.0-15.5); LYMPH # 2.4 x10^3/uL (1.0-4.8); LYMPH % 35 % (24-48); MEAN CORPUSCULAR HEMOGLOBIN 28 pg (25-35); MEAN CORPUSCULAR HGB CONC 33 g/dL (31-37); MEAN CORPUSCULAR VOLUME 86 fL (79-100); MONO # 0.6 x10^3/uL (0.0-1.1); MONO % 9 % (0-9); NEUT # 3.8 x10^3/uL (1.8-7.7); NEUT % 53 % (31-73); PLATELET COUNT 348 x10^3/uL (140-400); RED BLOOD COUNT 4.48 x10^6/uL (3.50-5.40); RED CELL DISTRIBUTION WIDTH 14.5 % (11.5-14.5); WHITE BLOOD COUNT 7.1 x10^3/uL (4.0-11.0)
[2021-11-29 15:49] LABS: CALCIUM 9.4 mg/dL (8.5-10.1); CREATININE 1.1 mg/dL (0.6-1.0); GFR 48.7; POTASSIUM 3.8 mmol/L (3.5-5.1)
[2021-11-29 15:55] LABS: ALBUMIN 3.7 g/dL (3.4-5.0); TOTAL BILIRUBIN 0.3 mg/dL (0.2-1.0); TOTAL PROTEIN 7.5 g/dL (6.4-8.2)
== END ==
LOC: ONCLAB 15:16
PROVIDERS: ATTEND Physician Assistant
DX: C50.011 Malignant neoplasm of nipple and areola, right female breast (principal)
CPT/HCPCS: 36415; 80053; 83615; 85025